=== PATIENT | female | born 1955 | race Caucasian/White ===

== ENCOUNTER 2022-10-14 10:11 | Outpatient (CLI) | payer MEDICARE, SELFPAY ==
[2022-10-14 10:26] LABS: Basophils % 0.6 %; Eosinophils # 0.1 10^3/uL (0.0-0.8); Eosinophils % 1.9 %; Hemoglobin 12.9 g/dL (11.5-15.3); Lymphocytes # 0.7 10^3/uL (0.8-4.8); Lymphocytes % 15.4 %; Mean Corpuscular HGB Conc 31.5 g/dL (30.0-36.0); Mean Corpuscular Hemoglobin 29.7 pg (28.0-34.0); Mean Corpuscular Volume 94.3 fl (81-99); Mean Platelet Volume 12.4 fL (7.4-10.4); Monocytes # 0.6 10^3/uL (0.2-0.9); Monocytes % 12.6 %; Neutrophils # 3.22 10^3/uL (1.8-7.7); Neutrophils % 69.1 %; Nucleated Red Blood Cells % 0 %; Platelet Count 127 10^3/cmm (130-400); Red Blood Count 4.35 10^6/uL (4.1-5.3); Red Cell Distribution Width 15.6 % (12.1-15.1); White Blood Count 4.7 10^3/uL (4.0-10.0)
== END 2022-10-14 10:12 | disposition home or self-care (01) ==
PROVIDERS: PCP Nurse Practitioner Family; Visit Provider Nurse Practitioner Family
DX: D50.9 Iron deficiency anemia, unspecified (principal)
CPT/HCPCS: 85025

== ENCOUNTER 2024-02-23 10:12 | Emergency (ER) | payer MEDICARE, MEDICAID, SELFPAY ==
[2024-02-23 10:30] VITALS: BP 151/83; PULSE 77; RESP 18; TEMP 36.8; O2SAT 98
--- NOTE | 2024-02-23 10:45 | CTR_ITS ---
PROCEDURE INFORMATION: Exam: CT Head Without Contrast Exam date and time: 02/23/2024 11:02 AM Age: 68 years old Clinical indication: Altered mental status/memory loss; Additional info: AMS TECHNIQUE: Imaging protocol: Computed tomography of the head without contrast. Radiation optimization: All CT scans at this facility use at least one of these dose optimization techniques: automated exposure control; mA and/or kV adjustment per patient size (includes targeted exams where dose is matched to clinical indication); or iterative reconstruction. COMPARISON: No relevant prior studies available. RADIATION DOSE METRICS: Total DLP (mGy-cm): 997 FINDINGS: Brain: There is no evidence of acute parenchymal hemorrhage, extra-axial collection, or acute infarction. There is no mass effect, midline shift, or downward herniation. Cerebral ventricles: No ventriculomegaly. Paranasal sinuses: Visualized sinuses are unremarkable. No fluid levels. Mastoid air cells: Visualized mastoid air cells are well aerated. Bones: Unremarkable. No acute fracture. Soft tissues: Unremarkable. CT/CT head wo con* [id number] IMPRESSION: No acute intracranial abnormality.
--- NOTE | 2024-02-23 10:45 | XR_ITS ---
WS: [id number] XR chest 1V portable [id number] REASON FOR EXAM: dyspnea/cough FINDINGS: Moderate tortuosity and ectasia of the thoracic aorta. The heart is at the upper limits of normal in size. Calcified granulomas disease bilaterally. No acute pulmonary parenchymal or pleural abnormality is identified. Moderate elevation of the left hemidiaphragm laterally. Dextroscoliosis and mild degenerative spondylosis of the thoracic spine. XR/XR chest 1V portable [id number] IMPRESSION: No acute chest abnormality identified.
--- NOTE | 2024-02-23 10:51 | ED_ITS ---
HPI - Weakness 2 General: Chief complaint: Weakness Stated complaint: right sided weakness Time Seen by Provider: 02/23/24 10:35 History of Present Illness: 68-year-old female presents emergency ro om with report of right-sided weakness she has a history of dementia. EMS states the complaint was weakness and monitor the right for last 2 days. She was sleeping on arrival here she denies any chest pain she denies any shortness of breath she does not know where she was recommended because she got here. She does follow commands. She mentions simple questions okay but is not oriented at all. Weakness we could find was in her left leg. She denies chest pain denies shortness of breath denies any abdominal pain. She denies dysuria. Associated symptoms: Denies chest pain or dysuria Review of Systems 2 General: Reports: Other (Limited due to mental status) Card: Denies: chest pain Resp: Denies: dyspnea GI: Denies: abdominal pain : Denies: dysuria Physical Exam 2 Const: COMMON NORMALS: no acute distress GENERAL APPEARANCE: cooperative and comfortable ORIENTATION/CONSCIOUSNESS: Yes awake HENMT: COMMON NORMALS: normocephalic, atraumatic and hearing grossly normal bilaterally HEAD & SCALP: normocephalic and atraumatic Resp: COMMON NORMALS: normal respiratory effort, No retractions, No use of accessory muscles and clear to auscultation bilaterally AUSCULTATION: clear to auscultation bilaterally Cardio: COMMON NORMALS: regular rate, regular rhythm and No murmurs present (Cardio) RATE: regular rate RHYTHM: regular rhythm GI: COMMON NORMALS: Soft to palpation and No hepatosplenomegaly present A USCULTATION: Yes normoactive bowel sounds PALPATION: Yes Soft to palpation, No Tenderness to palpation present (GI), No Guarding due to palpation present (GI) and Yes No hepatosplenomegaly present Extremity: COMMON NORMALS: normal to inspection, capillary refill normal, no clubbing, cyanosis or edema, no calf tenderness and no pedal edema Skin: COMMON NORMALS: no rashes or lesions noted GENERAL SKIN EXAM: no rashes or lesions noted Course 2 Vital Signs: Vital signs: Vital Signs Temperature 97.6 F 02/23/24 12:29 Pulse Rate 86 02/23/24 14:09 Respiratory Rate 16 02/23/24 14:09 Blood Pressure 179/91 02/23/24 14:09 Pulse Oximetry 95 02/23/24 14:09 Oxygen Delivery Me thod Room Air 02/23/24 13:00 MDM - Weakness Medical Decision Making Report of right-sided weakness. On her stroke score she is all of her points for 1 or actually related to her dementia. She has weakness but it is in her left leg not her right sensation and strength are normal in both legs. I do not believe she has an acute stroke CT of her head was negative she does have a cystitis. Will treat with antibiotics white count in her room kidney function are normal. Discharge patient back to nursing on cefdinir 300 twice daily. Lab Data 02/23/24 10:50 02/23/24 10:50 Radiology Impressions Chest X-Ray 02/23/24 10:45 IMPRESSION: No acute chest abnormality identified. Head CT 02/23/24 10:45 IMPRESSION: No acute intracranial abnormality. Laboratory Results WBC 4.27 10^3/uL (3.29-11.43) 02/23/24 10:50 RBC 4.27 10^6/uL (3.85-5.65) 02/23/24 10:50 Hgb 12.80 g/dL (11.27-16.99) 02/23/24 10:50 Hct 39.9 % (36-47) 02/23/24 10:50 MCV 93.4 fl (85-98) 02/23/24 10:50 MCH 30.0 pg (27-33) 02/23/24 10:50 MCHC 32.1 g/dL (30-55) 02/23/24 10:50 RDW 15.2 % (12.1-15.1) H 02/23/24 10:50 Plt Count 102 10^3/cmm (157-399) L 02/23/24 10:50 MPV 12.1 fL (7.4-10.4) H 02/23/24 10:50 Neut % (Auto) 73.2 % 02/23/24 10:50 Lymph % (Auto) 11.2 % 02/23/24 10:50 Garden % (Auto) 12.9 % 02/23/24 10:50 Eos % (Auto) 1.6 % 02/23/24 10:50 Baso % (Auto) 0.9 % 02/23/24 10:50 Neut # (Auto) 3.12 10^3/uL (1.8-7.7) 02/23/24 10:50 Lymph # (Auto) 0.5 10^3/uL (0.8-4.8) L 02/23/24 10:50 Garden # (Auto) 0.6 10^3/uL (0.2-0.9) 02/23/24 10:50 Eos # (Auto) 0.1 10^3/uL (0.0-0.8) 02/23/24 10:50 Baso # (Auto) 0.0 10^3/uL (0.0-0.1) 02/23/24 10:50 Nucleated RBC % (auto) 0 % 02/23/24 10:50 Nucleated RBCs # 0.0 /100WBC 02/23/24 10:50 Sodium 144 mmol/L (136-145) 02/23/24 10:50 Potassium 3.5 mmol/L (3.5-5.1) 02/23/24 10:50 Chloride 107 mmol/L (98-107) 02/23/24 10:50 Carbon Dioxide 28 mmol/L (22-29) 02/23/24 10:50 Anion Gap 12.5 (5-19) 02/23/24 10:50 BUN 14 mg/dL (8-23) 02/23/24 10:50 Creatinine 0.6 mg/dL (0.5-0.9) 02/23/24 10:50 GFR Calculation 99.1 mL/min (90-130) 02/23/24 10:50 Glucose 81 mg/dL (65-115) 02/23/24 10:50 Calculated Osmolality 298 mOsm/kg (285-295) H 02/23/24 10:50 Calcium 8.9 mg/dL (8.5-10.5) 02/23/24 10:50 Total Bilirubin 0.6 mg/dL (0.15-1.2) 02/23/24 10:50 AST 19 U/L (0-32) 02/23/24 10:50 ALT 19 U/L (0-33) 02/23/24 10:50 Alkaline Phosphatase 102 U/L (35-105) 02/23/24 10:50 Troponin T Baseline 22 ng/L (0-10) H 02/23/24 10:50 Troponin T 120 Minute 22.12 ng/L (0-10) H 02/23/24 12:48 Delta Troponin T 0.12 ABS# (0-10) 02/23/24 12:48 Total Protein 6.3 g/dL (6.6-8.7) L 02/23/24 10:50 Albumin 3.7 g/dL (3.5-5.2) 02/23/24 10:50 Globulin 2.6 g/dL (1.3-4.6) 02/23/24 10:50 Urine Color Yellow (Yellow) 02/23/24 12:04 Urine Appearance Clear (CLEAR) 02/23/24 12:04 Urine pH 7.5 (5-7) 02/23/24 12:04 Ur Specific [place] 1.008 (1.005-1.030) 02/23/24 12:04 Urine Protein Negative (Negative) 02/23/24 12:04 Urine Glucose (UA) Negative (Normal) 02/23/24 12:04 Urine Ketones Negative (Negative) 02/23/24 12:04 Urine Blood Negative (Negative) 02/23/24 12:04 Urine Nitrate Positive (Negative) A 02/23/24 12:04 Urine Bilirubin Negative (Negative) 02/23/24 12:04 Urine Urobilinogen 1.0 mg/dL (Negative) 02/23/24 12:04 Ur Leukocyte Esterase 1+ (Negative) A 02/23/24 12:04 Urine RBC 0-2 /hpf (0-2) 02/23/24 12:04 Urine WBC 6-10 /hpf (0-5) 02/23/24 12:04 Ur Squamous Epith Cells 0-5 /hpf (0-5) 02/23/24 12:04 Amorphous Sediment Not Reportable 02/23/24 12:04 Urine Bacteria 4+ /hpf (NONE) H 02/23/24 12:04 Hyaline Casts 0.81 /lpf 02/23/24 12:04 All radiology interpretation(s) finalized by discharge Discharge Plan Discharge Patient Disposition: Home Clinical Impression: Cystitis, Dementia Condition: Stable Prescriptions: New cefdinir 300 mg capsule 300 mg PO BID Qty: 14 0RF No Action acetaminophen 325 mg Tablet 650 mg PO Q4H PRN (Reason: pain or fever) alprazolam 0.5 mg tablet 0.5 mg PO Q8H PRN (Reason: Anxiety) Milk of Magnesia 400 mg/5 mL Suspension 2,400 mg PO DAILY PRN (Reason: Constipation) Dulcolax (bisacodyl) 10 mg Suppository 10 mg [place] DAILY PRN (Reason: Constipation) buspirone 10 mg tablet 10 mg PO TID Fleet Enema 19-7 gram/118 mL Enema 118 ml [place] DAILY PRN (Reason: Constipation) Lasix 20 mg Tablet 20 mg PO DAILY risperidone 1 mg tablet 1 mg PO DAILY lamotrigine 100 mg tablet 50 mg PO TID risperidone 0.5 mg tablet 1.5 mg PO QPM melatonin 1 mg Tablet 1 mg PO DAILY memantine 5 mg tablet 5 mg PO BID duloxetine 60 mg capsule,delayed release(DR/EC) 60 mg PO DAILY eszopiclone 3 mg tablet 3 mg PO BEDTIME potassium chloride 20 mEq Tablet Extended Release 20 meq PO DAILY Discharge Orders: Discharge ED (Routine); Ordered 02/23/24 Ordered By: Eugenio Coronel Referrals: Fredo Jiang FNP [Primary Care Provider] - Discharge Diet: Advance as tolerated Discharge Activity: Resume usual activity Patient Instructions: Urinary Tract Infection in Women (ED), Opioid Safety, Pain Management Coding Level of Care Code ED 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 Engineering 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 for [facility] Fwd Related Data Home Medications Medication Instructions Recorded Confirmed acetaminophen 325 mg tablet 650 mg PO Q4H PRN pain or fever 02/23/24 02/23/24 alprazolam 0.5 mg tablet 0.5 mg PO Q8H PRN Anxiety 02/23/24 02/23/24 bisacodyl 10 mg rectal suppository 10 mg [place] DAILY PRN Constipation 02/23/24 02/23/24 (Dulcolax (bisacodyl)) buspirone 10 mg tablet 10 mg PO TID 02/23/24 02/23/24 duloxetine 60 mg capsule,delayed 60 mg PO DAILY 02/23/24 02/23/24 release eszopiclone 3 mg tablet 3 mg PO BEDTIME 02/23/24 02/23/24 furosemide 20 mg tablet (Lasix) 20 mg PO DAILY 02/23/24 02/23/24 lamotrigine 100 mg tablet 50 mg PO TID 02/23/24 02/23/24 magnesium hydroxide 400 mg/5 mL 2,400 mg PO DAILY PRN Constipation 02/23/24 02/23/24 oral suspension (Milk of Magnesia) melatonin 1 mg tablet 1 mg PO DAILY 02/23/24 02/23/24 memantine 5 mg tablet 5 mg PO BID 02/23/24 02/23/24 potassium chloride 20 mEq 20 meq PO DAILY 02/23/24 02/23/24 tablet,extended release risperidone 0.5 mg tablet 1.5 mg PO QPM 02/23/24 02/23/24 risperidone 1 mg tablet 1 mg PO DAILY 02/23/24 02/23/24 sodium phosphates 19 gram-7 118 ml [place] DAILY PRN Constipation 02/23/24 02/23/24 gram/118 mL enema (Fleet Enema) Previous Rx's Medication Instructions Recorded cefdinir 300 mg capsule 300 mg PO BID #14 caps 02/23/24 Allergies Allergy/AdvReac Type Severity Reaction Status Date / Time No Known Allergies Allergy Verified 02/23/24 10:34 NIH stroke score NIHSS Level Of Consciousness - 1a: 0 Level Of Consciousness Questions - 1b: Neither Correct Level Of Consciousness Commands - 1c: Both Correct Best Gaze - 2: Normal Visual Reich - 3: No Visual Loss Facial Palsy - 4: Normal Motor Arm Right - 5: No Drift Motor Arm Left - 5: No Drift Motor Leg Right - 6: No Drift Motor Leg Left - 6: Drift Limb Ataxia - 7: Absent Sensory - 8: Normal Best Language - 9: No Aphasia Dysarthia - 10: Normal Extinction And Inattention - 11: 0 Score Total Score: 3
[2024-02-23 10:58] LABS: Basophils % 0.9 %; Eosinophils # 0.1 10^3/uL (0.0-0.8); Eosinophils % 1.6 %; Hematocrit 39.9 % (36-47); Lymphocytes # 0.5 10^3/uL (0.8-4.8); Lymphocytes % 11.2 %; Mean Corpuscular HGB Conc 32.1 g/dL (30-55); Mean Corpuscular Volume 93.4 fl (85-98); Mean Platelet Volume 12.1 fL (7.4-10.4); Monocytes # 0.6 10^3/uL (0.2-0.9); Monocytes % 12.9 %; Neutrophils # 3.12 10^3/uL (1.8-7.7); Neutrophils % 73.2 %; Nucleated Red Blood Cells % 0 %; Platelet Count 102 10^3/cmm (157-399); Red Blood Count 4.27 10^6/uL (3.85-5.65); Red Cell Distribution Width 15.2 % (12.1-15.1); White Blood Count 4.27 10^3/uL (3.29-11.43)
[2024-02-23 11:16] LABS: Alanine Aminotransferase 19 U/L (0-33); Albumin Level 3.7 g/dL (3.5-5.2); Alkaline Phosphatase 102 U/L (35-105); Anion Gap 12.5 (5-19); Aspartate Amino Transferase 19 U/L (0-32); Blood Urea Nitrogen 14 mg/dL (8-23); Calcium 8.9 mg/dL (8.5-10.5); Carbon Dioxide 28 mmol/L (22-29); Chloride 107 mmol/L (98-107); Globulin 2.6 g/dL (1.3-4.6); Glomerular Filtration Rate 99.1 mL/min (90-130); Glucose 81 mg/dL (65-115); Osmolality Calculated 298 mOsm/kg (285-295); Potassium 3.5 mmol/L (3.5-5.1); Sodium 144 mmol/L (136-145); Total Bilirubin 0.6 mg/dL (0.15-1.2); Total Protein 6.3 g/dL (6.6-8.7)
[2024-02-23 11:18] LABS: Troponin(5th) Baseline 22 ng/L (0-10)
--- NOTE | 2024-02-23 11:50 | ECG_ITS ---
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 Measurements Intervals [place] Rate: 81 P: 64 VA: 198 QRS: 14 QRSD: 98 T: 58 QT: 390 QTc: 455 Interpretive Statements SINUS RHYTHM No previous ECG available for comparison Electronically Signed On 02-24-2024 7:44:13 CDT by Alberto Ferreira M.D. [id number]
[2024-02-23 12:29] VITALS: BP 179/88; PULSE 82; RESP 16; TEMP 36.4; O2SAT 98
--- NOTE | 2024-02-23 12:44 | PC.PHAR ---
[facility]
--- NOTE | 2024-02-23 12:45 | ECG_ITS ---
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 Measurements Intervals [place] Rate: 80 P: 48 DE: 180 QRS: 8 QRSD: 112 T: 81 QT: 383 QTc: 443 Interpretive Statements SINUS RHYTHM POSSIBLE LATERAL MYOCARDIAL INFARCTION , OF INDETERMINATE AGE [30 ms Q WAVE IN I/aVL/V5/V6] Compared to ECG 02/23/2024 11:50:13 Myocardial infarct finding now present Electronically Signed On 02-24-2024 7:51:31 CDT by Alberto Ferreira M.D. [id number]
[2024-02-23 13:00] VITALS: BP 169/93; PULSE 81; RESP 16; O2SAT 98
[2024-02-23 13:00] LABS: Charge for UA Resulting for Rev
[2024-02-23 13:05] LABS: Bilirubin Urine Negative (Negative); Blood Urine Negative (Negative); Glucose Urine UA Negative (Normal); Ketones Urine Negative (Negative); Leukocyte Esterase Urine 1+ (Negative); Nitrate Urine Positive (Negative); Protein Urine Negative (Negative); Specific Gravity, Urine 1.008 (1.005-1.030); Urine Appearance Clear (CLEAR); Urine Color Yellow (Yellow); pH Urine 7.5 (5-7)
[2024-02-23 13:08] LABS: Bacteria Urine 4+ /hpf; Hyaline Casts Urine 0.81 /lpf; RBC Urine 0-2 /hpf (0-2); Squamous Epithelial Cell Urine 0-5 /hpf (0-5)
[2024-02-23 13:12] LABS: Add Urine Culture? Yes
[2024-02-23 13:14] LABS: Troponin 5 2HR 22.12 ng/L (0-10); Troponin 5 2HR Delta 0.12 ABS# (0-10)
[2024-02-23] MEDS: cefTRIAXone 1,000 mg SDV 1000 MG IVP (13:50)
--- NOTE | 2024-02-23 14:08 | PC.NURSE ---
Attempted to call report to [place] twice. Left a voicemail to return call for the nurse to give report.
[2024-02-23 14:09] VITALS: BP 179/91; PULSE 86; RESP 16; O2SAT 95
== END 2024-02-23 13:56 | disposition home or self-care (01) ==
PROVIDERS: Emergency Provider Family Medicine; PCP Nurse Practitioner Family
DX: N30.90 Cystitis, unspecified without hematuria (principal); F03.90 Unspecified dementia, unspecified severity, without behavioral disturbance, psychotic disturbance, mood disturbance, and anxiety
CPT/HCPCS: 36415; 70450; 71045; 80053; 81003; 81015; 84484; 85025; 87077; 87086; 87186; 93005; 96374; 99285; J0696

== ENCOUNTER 2024-12-25 01:03 | Emergency (ER) | payer MEDICARE, MEDICAID, SELFPAY ==
--- OUTSIDE RECORDS SUMMARY | 2011-09-17 06:00 | XMS_ITS | Continuity of Care Document ---
Author Organization [facility] Address [address] [id number] [address] Phone Care Team Providers Care Senior Data Mining Analyst Name Role Phone Unavailable Unavailable Unavailable Allergies, [...] Diagnoses Date Provider Providers Copied on Encounter [facility], [id number], [id number], tel:[phone] [facility] Dental examination 2 No Information [facility], [id number], [place], [id number], [place] tel:[phone] [facility] Dental examination 2 No Information Family History Family Member Type Diagnosis Age At Onset No Information Payers Payer name Insurance type Covered constitution party ID luca gem(s) D Medicaid [id number] Social History Type Description Quantity Date Captured [...]
[2024-12-25 01:11] VITALS: BP 139/70; PULSE 97; RESP 18; TEMP 36.6; O2SAT 97; BMI 29.0
--- OUTSIDE RECORDS SUMMARY | 2024-12-25 01:12 | XMS_ITS | Clinical Summary ---
Author Organization [facility] Address [address] [place] [address] Phone Care Team Providers Care Rotary Planer Set Up Operator Name Role Phone Unavailable Primary Care Provider Unavailabl e Allergies Active Allergy Reactions Criticality Noted Date Comments Latex Itching Low 03/31/2015 Penicillins Other (See Comments) High 08/22/2009 Throat closed up Medications furosemide (LASIX) 20 mg tabletIndication s:Lymphedema of both lower extremities Take 1-2 Tablets (20-40 mg) by mouth 1 time daily as needed (for fluid swelling in feet and legs). 50 Tablet 1 2 Active potassium chloride (KLOR-CON) 20 mEq Extended Release tabletIndication s:Lymphedema of both lower extremities 1 tablet by mouth on any day you take the fluid pill. 30 Tablet 1 2 Active FLUoxetine (PROzac) 20 mg capsuleIndicatio ns:Major depressive disorder, recurrent episode, in partial remission Take 1 Capsule (20 mg) by mouth daily. 90 Capsule 2 Active donepeziL (Aricept) 10 mg tabletIndication s:Early onset Alzheimer's dementia without behavioral disturbance (CMS/HCC) Take 1 Tablet (10 mg) by mouth daily at bedtime. 90 Tablet 2 Active Active Problems Problem Noted Date Diagnosed Date Lymphedema of both lower extremities 03/11/2022 Abnormal weight loss 10/18/2021 Thrombocytopenia 10/18/2021 Early onset Alzheimer's gaby ntia without behavioral disturbance 07/21/2021 Major depressive disorder, r ecurrent episode, in partial remission 03/08/2021 Memory changes 03/08/2021 History of gastrointestinal bleeding 01/12/2016 Cholelithiasis 11/29/2011 Hepatic cirrhosis 08/22/2009 Hx of hepatitis C 04/09/2008 Overview (10/12/2020): Mar 2016 SVR achieved. Cirrhosis of liver on ultrasound Resolved Problems Problem Noted Date Diagnosed Date Resolved Date Secondary esophageal varices without bleeding 01/12/20 16 03/08/2021 Tobacco use 06/30/2015 11/14/2016 Tobacco use 06/30/2015 11/14/2016 Periodontal disease 06/06/2011 03/08/20 21 Esophageal varix 09/20/2010 03/08/2021 Depression 09/20/2010 03/08/2021 Hepatic encephalopathy 12/22/200903/08 Ascites 08/22/2009 03/08/2021 Immunizations Immunization Administration Dates Next Due (HAVRIX/VAQTA)(19 YRS UP) HE PATITIS A VACCINE ADULT DOSAGE 1 ML IMM 01/09/2012 (PNEUMOVAX 23)(50 YRS UP) PN EUMOCOCCAL POLYSACCHARIDE (PPV23) 0.5 ML, IM 12/26/2011 (SPIKEVAX) (12 YRS UP PRIMAR Y SERIES) COVID-19 VACCINE - MRNA-[id number](PF) 100 MCG/0.5 ML IM SUSP 04/20/2021 Influenza Seasonal Unspecifi ed Formulation IM 04/16/2021,04/28/2018,07/01/2017,07/19 Influenza Vaccine High Dose 65+ Yrs IM 0 Influenza Vaccine Split 3+ Yrs PF IM 03/18/2013, 03/27/2011 PNEUMOVAX (PPSV23) pneumococ mary polysaccharide 23-valent Vaccine 07/19/2016 Family History Medical History Relation Name Comments Unknown Father Alzheimer's Disease Maternal Grandmother Alzheimer's Disease Mother Breast Cancer Sister Colon Cancer Neg Hx Relation Name Status Comments Father Maternal Grandfather Maternal Grandmother Mother Paternal Grandfather Paternal Grandmother Sister Social History Tobacco Use Types Packs/Day Years Used Date Smoking Tobacco: Former Cigarettes Q uit: 02/14/2021 Smokeless Tobacco: Never Tobacco Cessation:Counseling Given: No Alcohol Use Standard Drinks/Week Comments No 0 (1 standard drink = 0.6 oz pur e alcohol) Comments No Sex and Gender Information Value Date Recorded Sex Assigned at Not on file Legal Sex Female 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 Gender Identity Not on file Sexual Orientation Not on file Last Filed Vital Signs Vital Sign Reading Time Taken Comments Blood Pressure 112/64 03/11/2022 8:22 AM CDT Pulse 72 03/11/2022 8:22 AM CDT Temperature 36.3 C (97.3 F) 03/11/2022 8:22 AM CDT Respiratory Rate 16 03/11/2022 8:22 AM CDT Oxygen Saturation 99% 03/11/2022 8:22 AM CDT Inhaled Oxygen Concentration - - Weight 60.6 kg (133 lb 9.6 oz) 03/11/2022 8:22 A M CDT Height 175.3 cm (5' 9 ) 03/11/2022 8:22 AM CDT Body Mass Index 19.73 03/11/2022 8:22 AM CDT Plan of Treatment Health Maintenance Due Date Last Done Comments DTAP/TDAP/TD VACCINES (1 - Tdap) 1973 FIT-DNA Q 3 years 1999 FIT/FOBT Q 1 year 1999 Flex Sig/CT Colonography Q 5 years 1999 ZOSTER VACCINE (1 of 2) 2004 RSV VACCINE (60+ or ) (1 - Risk 60-74 years 1-dose series) 2014 PNEUMOCOCCAL VACCINE 50+ YEA RS (2 of 2 - PCV) 07/19/2017 07/19/2016, 12/26/2011 COLORECTAL SCREENING 10/29/2017 10/29/2012, 10/29/2012, 10/29/2012 Colorectal Cancer Screening 10/29/2017 OSTEOPOROSIS SCREENING 2019 BREAST CANCER SCREENING 01/09/2020 01/08/2019, 01/08 COVID-19 Vaccine (2 - 2023-2 5 season) 2024 04/20/2021 INFLUENZA VACCINE (#1) 2025 , 03/17/2020, 04/28/2018, Additional history exists Medical Devices Implanted Type Area Slp Device Identifier Shelf Expiration Date Model / Serial / Lot Log [id number] - Endoscopy Ligation - 1 - Ligator Band Super 7 [id number] Implanted:Qty: 1 on 09/24/2011 Other Esophagus [employer] 07/26/2012 4225-40 / / [id number] Description:6 bands placed. pt chapis well Log [id number] - Endoscopy Ligation - 1 - Ligator Band Super 7 [id number] Implanted:Qty: 1 on 10/15/2011 Other Esophagus [employer] 07/17/2012 4225-40 / [id number] / [id number] Description:2 bands used Procedures Procedure Name Priority Date/Time Associated Diagnosis Comments MAMMO 3D EMILIANO SCREEN BILATERAL MOBILE Routine 01/08/2019 11:01 AM CDT Encounter for screening mammogram for malignant neoplasm of breast from Last 3 Months or Most Recently Relevant to Health Maintenance Results * MAMMO 3D SCREEN BILATERAL MOBILE (01/08/2019 11:01 AM CDT) Anatomical Region Laterality Modality Breast Bilateral Other Narrative 01/22/2019 1:47 PM CDT Bilateral Digital Mammogram with CAD and 3D Tomography Reason for Exam: Screening Comparison: No prior exam(s) for comparison. Technique: 3D MLO and CC digital tomosynthesis images were acquired and synthesized 2D images (C view) were generated. This digital mammogram was also analyzed by the Computer Aided Detection System CAD). Breast Composition: The breasts are heterogeneously dense, which may obscure small masses. There are no suspicious masses, areas of architectural distortions, or microcalcifications to suggest malignancy. Procedure Note Bryan Vargas MD - 11/15/2020 Bilateral Digital Mammogram with CAD and 3D Tomography Reason for Exam: Screening Comparison: No prior exam(s) for comparison. Technique: 3D MLO and CC digital tomosynthesis images were acquired and synthesized 2D images (C view) were generated. This digital mammogram was also analyzed by the Computer Aided Detection System CAD). Breast Composition: The breasts are heterogeneously dense, which may obscure small masses. There are no suspicious masses, areas of architectural distortions, or microcalcifications to suggest malignancy. Naina Navarrete YARD ENGINEER MAMMO ORDERABLES Final Result from Last 3 Months or Most Recently Relevant to Health Maintenance Insurance MEDICAID [place] [address] [place] [address] DUAL COMPLETE O [facility] [id number]
--- OUTSIDE RECORDS SUMMARY | 2024-12-25 01:13 | XMS_ITS | Clinical Summary ---
Author Organization [facility] or Address [address] [place] [address] Phone Care Team Providers Care Acid Bath Mixer Name Role Phone Enrico Mendoza MD Primary Care Provider [phone] Allergies Active Allergy Reactions Criticality Noted Date Comments Latex Itching Low 03/31/2015 Penicillins Other (See Comments) High 08/22/2009 Throat closed up Medications No known medications Active Problems Problem Noted Date Diagnosed Date History of gastrointestinal bleeding 01/12/2016 Secondary esophageal varices without bleeding Cholelithiasis 11/29/2011 Periodontal disease 06/06/2011 Esophageal varix 09/20/2010 Depression 09/20/2010 Hepatic encephalopathy 12/22/2009 Ascites 08/22/2009 Hepatic cirrhosis 08/22/2009 Hx of hepatitis C 04/09/2008 Overview (04/17/2016): Mar 2016 SVR achieved. Cirrhosis of liver on ultrasound Resolved Problems Problem Noted Date Diagnosed Date Resolved Date Tobacco use 06/30/2015 11/14/2016 Tobacco use 06/30/2015 11/14/2016 Immunizations Immunization Administration Dates Next Due (HAVRIX/VAQTA)(19 YRS UP) HE PATITIS A VACCINE ADULT DOSAGE 1 ML IMM 01/09/2012 (PNEUMOVAX 23)(50 YRS UP) PN EUMOCOCCAL POLYSACCHARIDE (PPV23) 0.5 ML, IM 12/26/2011 Influenza Seasonal Unspecifi ed Formulation IM 04/28/2018,07/01/2017,07/19/2016 Influenza Vaccine High Dose 65+ Yrs IM 0 Influenza Vaccine Split 3+ Yrs PF IM 03/18/2013, 03/27/2011 PNEUMOVAX (PPSV23) pneumococ mary polysaccharide 23-valent Vaccine 07/19/2016 Family History Medical History Relation Name Comments Breast Cancer Sister Colon Cancer Neg Hx Relation Name Status Comments Father Maternal Grandfather Maternal Grandmother Mother Paternal Grandfather Paternal Grandmother Sister Social History Tobacco Use Types Packs/Day Years Used Date Smoking Tobacco: Former Cigarettes Q uit: 07/17/2015 Smokeless Tobacco: Never Tobacco Cessation:Counseling Given: No Alcohol Use Standard Drinks/Week Comments No 0 (1 standard drink = 0.6 oz pur e alcohol) Comments No Sex and Gender Information Value Date Recorded Sex Assigned at Not on file 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 Gender Identity Not on file Sexual Orientation Not on file Occupation Industry Job Start Date Job End Date Not on file Not on file Not on file Not on file Last Filed Vital Signs Vital Sign Reading Time Taken Comments Blood Pressure 146/82 10/04/2020 1:29 PM CDT Pulse 80 10/04/2020 1:29 PM CDT Temperature 36.3 C (97.3 F) 10/04/2020 1:29 PM CDT Respiratory Rate 16 10/04/2020 1:29 PM CDT Oxygen Saturation 99% 10/04/2020 1:29 PM CDT Room Air Inhaled Oxygen Concentration - - Weight 68.7 kg (151 lb 6.4 oz) 10/04/2020 1:29 P M CDT Height 175.3 cm (5' 9 ) 10/04/2020 1:29 PM CDT Body Mass Index 22.36 10/04/2020 1:29 PM CDT Plan of Treatment Health Maintenance Due [...] 07/19/2017 07/19/2016, 12/26/2011 COLORECTAL SCREENING 10/29/2017 10/29/2012, 10/30/19 13 Colorectal Cancer Screening 10/29/2017 OSTEOPOROSIS SCREENING 2019 BREAST CANCER SCREENING 01/09/2020 01/08/2019 Medicare Ad[place]age ([place]) Preventative Visit/Annual Wellness Visit 06/16/2024 INFLUENZA VACCINE (#1) 2025 0, 04/28/2018, 07/01/2017, Additional history exists Medical Devices Implanted Type Area Lead Advisor Device Identifier Shelf Expiration Date Model / Serial / Lot Log [id number] - Endoscopy Ligation - 1 - Ligator Band Super 7 [id number] Implanted:Qty: 1 on 09/24/2011 at [facility] Other Esophagus [employer] 07/26/2012 4225-40 / / [id number] Description:6 bands placed. pt chapis well Log [id number] - Endoscopy Ligation - 1 - Ligator Band Super 7 [id number] Implanted:Qty: 1 on 10/15/2011 at [facility] Other Esophagus [employer] 07/17/2012 4225-40 / 4225 / [id number] Description:2 bands used Procedures Procedure Name Priority Date/Time Associated Diagnosis Comments MAMMO 3D EMILIANO SCREEN BILATERAL MOBILE Routine 01/08/2019 11:01 AM CDT Visit for screening mammogram ENDOSCOPY, COLON, DIAGNOSTIC Routine 10/29/2012 3:26 PM CDT Change in bowel habits from Last 3 Months or Most Recently Relevant to Health Maintenance Results * MAMMO 3D SCREEN BILATERAL MOBILE (01/08/2019 11:01 AM CDT) Anatomical Region Laterality Modality Breast Bilateral Mammography Narrative 01/22/2019 1:49 PM CDT Bilateral Digital Mammogram with CAD [...] or microcalcifications to suggest malignancy. Naina Navarrete COMMODITY BUYER MAMMO ORDERABLES Final Result from Last 3 Months or Most Recently Relevant to Health Maintenance Insurance MEDICAID [place] DUAL COMPLETE M[employer] HMO SNP Advance Directives For more information, please contact: [phone] * Full Code (Latest Code Status on File) Date Activated Date Inactivated Comments 03/31/2015 11:25 AM 03/31/2015 2:38 PM * Full Code Date Activated Date Inactivated Comments 04/12/2013 10:47 AM 04/12/2013 2:14 PM * Full Code Date Activated Date Inactivated Comments 10/29/2012 3:27 PM 10/29/2012 7:44 PM * Full Code Date Activated Date Inactivated Comments 03/18/2012 8:09 AM 03/19/2012 2:01 AM * Full Code Date Activated Date Inactivated Comments 10/15/2011 8:29 AM 10/16/2011 2:01 AM Care Teams Acid Bath Mixer Relationship Specialty Start Date End Date Enrico Mendoza MD [address] [place] [address] PCP - General Family Practice 06/30/15
--- OUTSIDE RECORDS SUMMARY | 2024-12-25 01:13 | XMS_ITS | Data Portability ---
Author Organization [facility] Kenneth, Jaime, [facility] Address [address] [place] [phone] Assessment No assessment recorded. Plan of Treatment Reminders Order Date Submit Date Provider Last Modified By Organization Details Last Modified Time Details Appointments None record ed. Lab None record ed. Referral None record ed. Procedures None record ed. Surgeries None record ed. Imaging None record ed. Medication Orders None record ed. Patient TargetsNo targets recorded. Patient Instructions Encounter Date Encounter Id Patient Instructions Last Modified By Organization Details Last Modified Time 10/04/2024 [id number] d/c prn lasix an d potassium. Decrease risperdal to 1 tab. doing well, vitals stable. [email or web address] Not available 10/04/2024 15:03:04 10/25/2024 [id number] doing well. Will wean risperdal to 0.5 Not available 10/25/2024 15:43:39 11/17/2024 [id number] did well with decrease in risperdal, will d/c. [email or web address] Not available 11/17/2024 16:40:39 12/20/2024 [id number] Did well with stopping all antipsychotics. Will decrease buspar to 5mg bid. [email or web address] Not available 12/20/2024 16:39:05 12/22/2024 [id number] Blood pressure o n the low side, but likely will not tolerate compression wraps. Staff to try compression wraps and will start hctz 12.5 daily. [email or web address] Not available 12/22/2024 14:39:45 Reason for Referral None Reported. Problems Name Problem SNOMED Code Status Onset Date Resolution Date Notes Provider Name and Address Organization Details Recorded Time Anxiety 92317264 Active 2024 AMELIA moya [facility] 5 17:23:13 Restlessness and agitation 419669536 [facility] 15:26:43 Obsessive-com pulsive disorder 870710861 Active 2024 AMELIA BOLIVAR [facility] 5 15:26:51 Iron deficiency anemia 76898914 Active 2024 AMELIA BOLIVAR [facility] 5 15:26:58 Mixed anxiety and depressive disorder 168169059 Active 2024 AMELIA BOLIVAR [facility] 5 15:27:06 Insomnia 457147818 Active 2024 AMELIA BOLIVAR [facility] 5 15:27:20 Alzheimer's disease 94124349 Active 2024 AMELIA BOLIVAR [facility] 5 16:20:30 Bilateral lower limb edema 428077724 Active 2024 AMELIA BOLIVAR [facility] 5 14:38:42 Problem Notes None recorded. Medical Equipment None Reported. Medications Name Sig Start Date Stop Date Status Note LastModified by Organization Details LastModified Time donepezil 10 mg tablet active Not Available Not Available Not Available ciprofloxacin 250 mg tablet active Not Available Not Availabl e Not Available alprazolam 0.5 mg tablet Take 1 tablet 3 times a day by oral route for 30 days. active Not Available Not Available No t Available buspirone 10 mg tablet active Not Available Not Available Not Available haloperidol lactate 5 mg/mL injection solution active Not Available Not Available Not Available furosemide 20 mg tablet active Not Available Not Available No t Available cefdinir 300 mg capsule active Not Available Not Available Not Available risperidone 1 mg tablet active Not Available Not Available No t Available lamotrigine 100 mg tablet active Not Available Not Available No t Available risperidone 0.5 mg tablet active Not Available Not Available No t Available memantine 5 mg tablet active Not Available Not Available Not Available nitrofurantoin monohydrate/mac rocrystals 100 mg capsule active Not Available Not Available N ot Available duloxetine 30 mg capsule,delayed release active Not Available Not Available Not Available duloxetine 60 mg capsule,delayed release active Not Available Not Available Not Available eszopiclone 3 mg tablet Take 1 tablet every day by oral route at bedtime for 30 days. active Not Available Not Available No t Available Vitals Date Recorded Body weight Heart rate Respiratory rate Body temperature Oxygen saturation Oxygen saturation in Arterial blood by Pulse oximetry Systolic And Diastolic Provider Name and Address Organization Details Last Updated DateTime 5 64477.1 g 77 /min 18 /min 97.4 [degF] 98 % 98 % 120/76 mm[Hg] [facility] 5 15:01:13 Date Recorded Body weight Heart rate Respiratory rate Body temperature Oxygen saturation Oxygen saturation in Arterial blood by Pulse oximetry Systolic And Diastolic Provider Name and Address Organization Details Last Updated DateTime 5 58219.9 2 g 72 /min 18 /min 97.6 [degF] 95 % 95 % 124/72 mm[Hg] [facility] 5 15:41:33 Date Recorded Body weight Heart rate Respiratory rate Body temperature Oxygen saturation Oxygen saturation in Arterial blood by Pulse oximetry Systolic And Diastolic Provider Name and Address Organization Details Last Updated DateTime 5 49751.8 8 g 68 /min 20 /min 97.6 [degF] 96 % 96 % 128/74 mm[Hg] [facility] 5 16:38:42 Date Recorded Body weight Heart rate Respiratory rate Body temperature Oxygen saturation Oxygen saturation in Arterial blood by Pulse oximetry Systolic And Diastolic Provider Name and Address Organization Details Last Updated DateTime 5 67931.2 9 g 84 /min 18 /min 97.4 [degF] 96 % 96 % 124/80 mm[Hg] AMELIA BOLIVAR [facility] L[facility]in[facility]al 5 16:36:49 Date Recorded Body weight Heart rate Respiratory rate Body temperature Oxygen saturation Oxygen saturation in Arterial blood by Pulse oximetry Systolic And Diastolic Provider Name and Address Organization Details Last Updated DateTime 5 20188.2 9 g 84 /min 18 /min 97.6 [degF] 96 % 96 % 124/80 mm[Hg] AMELIA BOLIVAR [facility], Jaime 5 14:25:51 Social History None recorded. Functional Status None recorded. Mental Status None recorded. Family History Nothing Reported. Medical History No medical history recorded. Gynecological HistoryNo gynecological history recorded. Obstetrics History GPAL:G 0 P 0 0 0 0 Immunizations Vaccine Type Date Status Note Provider Nam e and Address Organization Details Recorded Time Influenza, split virus, trivalent, PF 1 completed Not Available [facility] 12/22/2024 13:01:29 Influenza, split virus, trivalent, PF 3 completed Not Available [facility] 12/22/2024 13:01:29 Influenza, MDCK, quadrivalent, PF 7 completed Not Available [facility] 12/22/2024 13:01:29 pneumococcal polysaccharide PPV23 7 completed Not Available [facility] 12/22/2024 13:01:29 Influenza, split virus, quadrivalent, PF 8 completed Not Available [facility] 12/22/2024 13:01:29 Influenza, split virus, quadrivalent, PF 8 completed Not Available [facility] 12/22/2024 13:01:29 COVID-19, mRNA, LNP-S, PF, 100 mcg/0.5mL dose or 50 mcg/0.25mL dose 1 completed Not Available [facility] 12/22/2024 13:01:29 COVID-19, mRNA, LNP-S, bivalent, PF, 50 mcg/0.5 mL or 25mcg/0.25 mL dose 3 completed Not Available [facility] 12/22/2024 13:01:29 Past Encounters Encounter ID Performer Location Encounter Start Date Encounter Closed Date Diagnosis/Indication Diagnosis SNOMED-CT Code Diagnosis ICD10 Code Diagnosis Note [id number] Nicola Jordan DO [facility] ([facility]) [address] [place], [place] [phone] 07/07/2024 08:27:31 07/12/2024 15:01:28 Anxiety 84163108 F41.9 Alzheimer's disease 2692 9004 G30.0 Restlessne ss and agitation 018288091 R45.1 Obsessive- compulsive disorder 157597445 F42.9 Iron defic iency anemia 52148396 D50.9 Mixed anxi ety and depressive disorder 287846159 F41.8 Insomnia 654941667 G47.0 0 [id number] Nicola Jordan DO [facility]) [address] [place], [place] [address] 07/28/2024 08:27:43 07/29/2024 17:21:18 [id number] Nicola Jordan DO [facility]) [address] [place], [place] [address] 08/02/2024 07:47:05 08/10/2024 07:59:31 Obsessive-compulsive disorder 500746489 F42.9 Insomnia 708336000 G47.0 0 Mixed anxi ety and depressive disorder 524317833 F41.8 [id number] Nicola Jordan DO [facility]) [address] [place] [address] 09/01/2024 08:27:16 09/06/2024 11:20:22 Obsessive-compulsive disorder 709850584 F42.9 Mixed anxi ety and depressive disorder 039729812 F41.8 Restlessne ss and agitation 859948672 R45.1 Alzheimer's disease 2692 9004 G30.0 [id number] Nicola Jordan DO [facility]) [address] [place], [place] [address] 10/04/2024 10:30:13 10/06/2024 17:11:32 Alzheimer's disease 14532428 G30.0 Mixed anxi ety and depressive disorder 743404754 F41.8 Insomnia 861573469 G47.0 0 [id number] Nicola Jordan DO [facility] ([facility]) [address] [phone] 10/25/2024 11:28:32 10/30/2024 07:59:19 Mixed anxiety and depressive disorder 979234023 F41.8 Alzheimer's disease 2692 9004 G30.0 Obsessive- compulsive disorder 104470276 F42.9 [id number] Nicola JordanDO [facility] ([facility]) [address] [address] 11/17/2024 09:41:06 11/22/2024 13:23:15 Mixed anxiety and depressive disorder 438836873 F41.8 Alzheimer's disease 2692 9004 G30.0 [id number] Nicola JordanDO [facility] ([facility]) [address] [address] 12/20/2024 08:36:10 12/21/2024 10:50:05 Obsessive-compulsive disorder 021151873 F42.9 Mixed anxi ety and depressive disorder 239356552 F41.8 Alzheimer's disease 2692 9004 G30.0 Insomnia 338720133 G47.0 0 [id number] Nicola Jordan [facility] ([facility]) [address] [place] [address] 5 12/22/2024 13:01:18 12/22/2024 16:07:52 Bilateral lower limb edema 890802039 R60.0 Health Concerns Section Related Observation LastModified by Organization Detai ls LastModified Time None Recorded Concern Status LastModified by Organization Details LastModified Time None Recorded Advance Directives Directive None Recorded Payers Insurance Date Sequence Insurance Name Policy Number Policy Coreas Covered Member ID Coreas Member ID Guarantor Name 12/17/2024 [place] - [facility] (MEDICARE) Henrietta Ashley [id number] Henrietta Ashley 12/17/2024 [place] [facility] Henrietta Ashley [id number] Henrietta Ashley 12/17/2024 1 MEDICARE B[place]: [facility] Henrietta Ashley [id number] Henrietta Ashley 07/01/2024 1 [facility] Henrietta Ashley [id number] Henrietta Ashley 12/17/2024 2 [place] Henrietta Ashley [id number] Henrietta Ashley Notes Date Note Type Note Provider Name and Address Organization Details Recorded Time 10/04/2024 text/html Generalized Anxi ety DisorderReported bypatient.Onset/Timing :years Severity:moderate Alleviating Factors:other medications Associated Symptoms:excess anxiety Nicola Jordan DO [address] [place], [place] [address], [facility]. 10/04/2024 15:15:39 10/25/2024 text/html Generalized Anxi ety DisorderReported bypatient.Onset/Timing :years Severity:moderate Alleviating Factors:other medications Associated Symptoms:excess anxiety no issues reported by staff. Nicola Jordan [address] [place], [place] [address], [facility], LTrinhLTrinhC. 10/29/2024 15:45:38 11/17/2024 text/html Generalized Anxi ety DisorderReported bypatient.Onset/Timing :years Severity:moderate Alleviating Factors:other medications Associated Symptoms:excess anxiety no issues reported by staff. Nicola Jordan DO [address] [place] [address], [phone], [facility] LTrinhL.[facility]. 11/21/2024 14:49:07 12/20/2024 text/html Generalized Anxi ety DisorderReported bypatient.Onset/Timing :years Severity:moderate Alleviating Factors:other medications Associated Symptoms:excess anxiety no issues reported by staff. Nicola Jordan DO [address] [place] [address], [phone], [facility] L.LTrinhC. 12/20/2024 16:48:59 12/22/2024 text/html Generalized Anxi ety DisorderReported bypatient.Onset/Timing :years Severity:moderate Alleviating Factors:other medications Associated Symptoms:excess anxiety staff reports increased BLE edema. Nicola Jordan [address] [place] [phone], [facility] 12/22/2024 14:43:52 OBGyn Episode No OBEpisode recorded.
--- OUTSIDE RECORDS SUMMARY | 2024-12-25 01:13 | XMS_ITS | Encounter Summary ---
Author Organization [facility] Address [address] [place] [address] Care Team Providers Care Research Tech Name Role Phone Enrico Mendoza MD Primary Care Provider [phone] Reason for Referral * Radiology Services (Routine) - Closed Specialty Diagnoses / Procedures Referred By Contac t Referred To Contact Diagnoses Visit for screening mammogram Procedures MAMMO 3D SCREEN BILATERAL MOBILE Naina Navarrete FNP Referral ID Status Reason Start Date Expiration Date Visits Re quested Visits Authorized [id number] Closed 12/03/2018 01/03/2020 1 1 Encounter Details Date Type Department Care Team (Latest Contact Info) Description 12/03/2018 Ancillary Orders [facility] [place] [address] [facility] [address] [place] [phone] Naina Navarrete FNP NO ADDRESS ON FILE Visit for screening mammogram Social History Tobacco Use Types Packs/Day Years Used Date Smoking Tobacco: Former Cigarettes Q uit: 07/17/2015 Smokeless Tobacco: Never Alcohol Use Standard Drinks/Week Comments No 0 (1 standard drink = 0.6 oz pur e alcohol) Comments No Sex and Gender Information Value Date Recorded Sex Assigned at Not on file 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
--- OUTSIDE RECORDS SUMMARY | 2024-12-25 01:13 | XMS_ITS | Continuity of Care Document ---
Author Organization [facility] Kenneth, Jaime, [facility] ([facility]) Address [address] [place] [address] Assessment No assessment recorded. Plan of Treatment [...] Modified By Organization Details Last Modified Time 12/20/2024 [id number] Did well with stopping all antipsychotics. Will decrease buspar to 5mg bid. Not available 12/20/2024 16:39:05 Reason for Referral None Reported. Problems Name Problem SNOMED Code Status Onset Date Resolution Date Notes Provider Name and Address Organization Details Recorded Time Anxiety 88915738 [facility] [address] [facility] [facility] 17:23:13 Restlessness and agitation 800920911 Active [address] [facility] 5 15:26:43 Obsessive-com pulsive disorder 906231933 Active [address] [facility], [facility] 5 15:26:51 Iron deficiency anemia 78210116 Active [address] [facility] 5 15:26:58 Mixed anxiety and depressive disorder 906988697 Active [address] [facility], Jaime 5 15:27:06 Insomnia 953617308 Active [address] [facility], Jaime 5 15:27:20 Alzheimer's disease 49002597 Active [address] [facility], Jaime 5 16:20:30 Bilateral lower limb edema 414282142 Active [address] [facility], Jaime 5 14:38:42 Problem Notes None recorded. Medical [...] Address Organization Details Last Updated DateTime 5 89274.2 9 g 84 /min 18 /min 97.4 [degF] 96 % 96 % 124/80 mm[Hg] AMELIA BOLIVAR [facility], .LTrinhTrinh 5 16:36:49 Social History None recorded. Functional Status None recorded. Mental Status None recorded. Family History Nothing Reported. Medical History No medical history recorded. Gynecological HistoryNo gynecological history recorded. Obstetrics History GPAL:G 0 P 0 0 0 0 Immunizations Vaccine Type Date Status Note Provider Nam e and Address Organization Details Recorded Time Influenza, split virus, trivalent, PF 1 completed Not Available [facility] 12/22/2024 13:01:29 Influenza, split virus, trivalent, PF 3 completed Not Available [facility] 12/22/2024 13:01:29 Influenza, MDCK, quadrivalent, PF 7 completed Not Available [facility] 12/22/2024 13:01:29 pneumococcal polysaccharide PPV23 7 completed Not Available [facility] 12/22/2024 13:01:29 Influenza, split virus, quadrivalent, PF 8 completed Not Available [facility] 12/22/2024 13:01:29 Influenza, split virus, quadrivalent, PF 8 completed Not Available [facility] 12/22/2024 13:01:29 COVID-19, mRNA, LNP-S, PF, 100 mcg/0.5mL dose or 50 mcg/0.25mL dose 1 completed Not Available [facility] 12/22/2024 13:01:29 COVID-19, mRNA, LNP-S, bivalent, PF, 50 mcg/0.5 mL or 25mcg/0.25 mL dose 3 completed Not Available [facility] 12/22/2024 13:01:29 Past Encounters Encounter ID Performer Location Encounter Start Date Encounter Closed Date Diagnosis/Indication Diagnosis SNOMED-CT Code Diagnosis ICD10 Code Diagnosis Note [id number] Nicola Jordan DO [facility] ([facility]) [address] [place] [address] 12/20/2024 08:36:10 12/21/2024 10:50:05 Obsessive-compulsive disorder 457469398 F42.9 Mixed anxi ety and depressive disorder 391133446 F41.8 Alzheimer's disease 2692 9004 G30.0 Insomnia 815139077 G47.0 0 Health Concerns Section Related Observation LastModified by Organization Detai ls LastModified Time None Recorded Concern Status LastModified by Organization Details LastModified Time None Recorded Payers Encounter Date Sequence Insurance Name Policy Number Policy Coreas Covered Member ID Coreas Member ID Guarantor Name 12/20/2024 1 [place] Henrietta Ashley [id number] Henrietta Ashley 12/20/2024 2 [place] Henrietta Ashley [id number] Henrietta Ashley Notes Date Note Type Note Provider Name and Address Organization Details Recorded Time 12/20/2024 text/html Generalized Anxi ety DisorderReported bypatient.Onset/Timing :years Severity:moderate Alleviating Factors:other medications Associated Symptoms:excess anxiety no issues reported by staff. Nicola Jordan, DO [address] [place] [address], [phone], [facility] L[facility]vy 12/20/2024 16:48:59 OBGyn Episode No OBEpisode recorded.
--- OUTSIDE RECORDS SUMMARY | 2024-12-25 01:13 | XMS_ITS | Continuity of Care Document ---
Author Organization [facility] Kenneth, Jaime, [facility] ([facility]) Address [address] [place] [address] Assessment No assessment recorded. Plan of Treatment [...] Modified By Organization Details Last Modified Time 12/22/2024 [id number] Blood pressure o n the low side, but likely will not tolerate compression wraps. Staff to try compression wraps and will start hctz 12.5 daily. [email or web address] Not available 12/22/2024 14:39:45 Reason for Referral None Reported. Problems Name Problem SNOMED Code Status Onset Date Resolution Date Notes Provider Name and Address Organization Details Recorded Time Anxiety 82444467 Active 2024 [facility] 17:[facility]:13 Restlessness and agitation 586157859 Active 2024 AMELIA moya [facility] LTrinhL.CTrinh 15:26:43 Obsessive-com pulsive disorder 824714909 Active 2024 [facility]IA [facility]oya [facility] 15:26:51 Iron deficiency anemia 02551659 Active 2024 [facility] 15:26:58 Mixed anxiety and depressive disorder 883871867 Active 2024 AMELIA moya [facility] 5 15:27:06 Insomnia 629164887 [facility] 15:27:20 Alzheimer's disease 05805367 Active 2024 AMELIA moya [facility], L.L.CTrinh 5 16:20:30 Bilateral lower limb edema 958193293 Active 2024 AMELIA moya [facility], L.L.CTrinh 5 14:38:42 Problem Notes None recorded. Medical [...] Address Organization Details Last Updated DateTime 5 12307.2 9 g 84 /min 18 /min 97.6 [degF] 96 % 96 % 124/80 mm[Hg] AMELIA BOLIVAR [facility], TayoTrinh 5 14:25:51 Social History None recorded. Functional Status None recorded. Mental Status None recorded. Family History Nothing Reported. Medical History No medical history recorded. Gynecological HistoryNo gynecological history recorded. Obstetrics History GPAL:G 0 P 0 0 0 0 Immunizations Vaccine Type Date Status Note Provider Nam e and Address Organization Details Recorded Time Influenza, split virus, trivalent, PF 1 completed Not Available [facility] 12/22/2024 13:01:29 Influenza, split virus, trivalent, PF 3 completed Not Available [facility] 12/22/2024 13:01:29 Influenza, MDCK, quadrivalent, PF 7 completed Not Available [facility] 12/22/2024 13:01:29 pneumococcal polysaccharide PPV23 7 completed Not Available [facility] 12/22/2024 13:01:29 Influenza, split virus, quadrivalent, PF 8 completed Not Available [facility] 12/22/2024 13:01:29 Influenza, split virus, quadrivalent, PF 8 completed Not Available [facility] 12/22/2024 13:01:29 COVID-19, mRNA, LNP-S, PF, 100 mcg/0.5mL dose or 50 mcg/0.25mL dose 1 completed Not Available [facility] 12/22/2024 13:01:29 COVID-19, mRNA, LNP-S, bivalent, PF, 50 mcg/0.5 mL or 25mcg/0.25 mL dose 3 completed Not Available [facility] 12/22/2024 13:01:29 Past Encounters Encounter ID Performer Location Encounter Start Date Encounter Closed Date Diagnosis/Indication Diagnosis SNOMED-CT Code Diagnosis ICD10 Code Diagnosis Note [id number] Nicola Jordan DO [facility] ([facility]) [address] [place] [address] 12/20/2024 08:36:10 12/21/2024 10:50:05 Obsessive-compulsive disorder 813194888 F42.9 Mixed anxi ety and depressive disorder 071804967 F41.8 Alzheimer's disease 2692 9004 G30.0 Insomnia 206789153 G47.0 0 [id number] Nicola Jordan DO [facility] ([facility]) [address] [place] [address] 12/22/2024 13:01:18 12/22/2024 16:07:52 Bilateral lower limb edema 130218363 R60.0 Health Concerns Section Related Observation LastModified by Organization Detai ls LastModified Time None Recorded Concern Status LastModified by Organization Details LastModified Time None Recorded Payers Encounter Date Sequence Insurance Name Policy Number Policy Coreas Covered Member ID Coreas Member ID Guarantor Name 12/22/2024 1 [place] Henrietta Ashley [id number] Henrietta Ashley 12/22/2024 2 [place] Henrietta Ashley [id number] Henriteta Ashley Notes Date Note Type Note Provider Name and Address Organization Details Recorded Time 12/22/2024 text/html Generalized Anxi ety DisorderReported bypatient.Onset/Timing :years Severity:moderate Alleviating Factors:other medications Associated Symptoms:excess anxiety staff reports increased BLE edema. Nicola Jordan DO [address] [place] [address], [phone], [facility] 12/22/2024 14:43:52 OBGyn Episode No OBEpisode recorded.
--- NOTE | 2024-12-25 01:52 | W.ED.EXTPRO ---
HPI - Extremity Problem General: Chief complaint: Extremity Problem,Nontraumatic Stated complaint: leg swelling Time Seen by Provider: 12/25/24 01:34 History of Present Illness: 69-year-old female detention patient presenting with chronic bilateral leg swelling with some redness. There evidently was some concern in the detention about an ulceration on one of the toes of the left foot concerning for worsening infection. The patient has had no fever. She is having no pain. She is a poor historian. Related Data Home Medications ?Medication ?Instructions ?Recorded ?Confirmed acetaminophen 325 mg tablet 650 mg PO Q4H PRN pain or fever 02/23/24 02/23/24 alprazolam 0.5 mg tablet 0.5 mg PO Q8H PRN Anxiety 02/23/24 02/23/24 bisacodyl 10 mg rectal suppository 10 mg [place] DAILY PRN Constipation 02/23/24 02/23/24 (Dulcolax (bisacodyl)) buspirone 10 mg tablet 10 mg PO TID 02/23/24 02/23/24 duloxetine 60 mg capsule,delayed 60 mg PO DAILY 02/23/24 02/23/24 release eszopiclone 3 mg tablet 3 mg PO BEDTIME 02/23/24 02/23/24 furosemide 20 mg tablet (Lasix) 20 mg PO DAILY 02/23/24 02/23/24 lamotrigine 100 mg tablet 50 mg PO TID 02/23/24 02/23/24 magnesium hydroxide 400 mg/5 mL 2,400 mg PO DAILY PRN Constipation 02/23/24 02/23/24 oral suspension (Milk of Magnesia) melatonin 1 mg tablet 1 mg PO DAILY 02/23/24 02/23/24 memantine 5 mg tablet 5 mg PO BID 02/23/24 02/23/24 potassium chloride 20 mEq 20 meq PO DAILY 02/23/24 02/23/24 tablet,extended release risperidone 0.5 mg tablet 1.5 mg PO QPM 02/23/24 02/23/24 risperidone 1 mg tablet 1 mg PO DAILY 02/23/24 02/23/24 sodium phosphates 19 gram-7 118 ml WA DAILY PRN Constipation 02/23/24 02/23/24 gram/118 mL enema (Fleet Enema) Previous Rx's ?Medication ?Instructions ?Recorded cefdinir 300 mg capsule 300 mg PO BID #14 caps 02/23/24 cephalexin 500 mg capsule 500 mg PO Q6H 10 days #40 caps 12/25/24 Allergies Allergy/AdvReac Type Severity Reaction Status Date / Time No Known Allergies Allergy Verified 02/23/24 10:34 Course Vital Signs: Vital signs: Vital Signs Temperature 97.8 F 12/25/24 01:11 Pulse Rate 79 12/25/24 02:40 Respiratory Rate 18 12/25/24 01:11 Blood Pressure 139/79 12/25/24 02:40 Pulse Oximetry 99 12/25/24 02:40 Oxygen Delivery Me thod Room Air 12/25/24 01:11 MDM - Extremity (Nontraumatic) Medical Decision Making 69-year-old female with chronic bilateral leg swelling. She does have some redness to the left lower leg and diffusely to the toes. There is no drainage. There is minimal ulceration to the plantar toe surfaces. She will be placed on Keflex. Discharged back to the detention. Return for worsening symptoms No radiology studies performed this visit Discharge Plan Discharge Patient Disposition: Home Clinical Impression: Cellulitis Condition: Stable Prescriptions: New cephalexin 500 mg capsule 500 mg PO Q6H 10 Days Qty: 40 0RF No Action acetaminophen 325 mg Tablet 650 mg PO Q4H PRN (Reason: pain or fever) alprazolam 0.5 mg tablet 0.5 mg PO Q8H PRN (Reason: Anxiety) Milk of Magnesia 400 mg/5 mL Suspension 2,400 mg PO DAILY PRN (Reason: Constipation) Dulcolax (bisacodyl) 10 mg Suppository 10 mg WA DAILY PRN (Reason: Constipation) buspirone 10 mg tablet 10 mg PO TID Fleet Enema 19-7 gram/118 mL Enema 118 ml WA DAILY PRN (Reason: Constipation) Lasix 20 mg Tablet 20 mg PO DAILY risperidone 1 mg tablet 1 mg PO DAILY lamotrigine 100 mg tablet 50 mg PO TID risperidone 0.5 mg tablet 1.5 mg PO QPM melatonin 1 mg Tablet 1 mg PO DAILY memantine 5 mg tablet 5 mg PO BID duloxetine 60 mg capsule,delayed release(DR/EC) 60 mg PO DAILY eszopiclone 3 mg tablet 3 mg PO BEDTIME potassium chloride 20 mEq Tablet Extended Release 20 meq PO DAILY cefdinir 300 mg capsule 300 mg PO BID Qty: 14 0RF Discharge Orders: Discharge ED (Routine); Ordered 12/25/24 Ordered By: Chin Mitchell Referrals: Nicola Jordan DO [Primary Care Provider, Internal Medicine] - 1-3 days Patient Instructions: Cellulitis (ED), Opioid Safety, Pain Management, Patient Portal & Kelly Instructions Print Language: Macanese Coding Level of Care Code ED Boat Assembler for Leonard Cortes
[2024-12-25 02:40] VITALS: BP 139/79; PULSE 79; O2SAT 99
== END 2024-12-25 02:46 | disposition home or self-care (01) ==
PROVIDERS: Emergency Provider Emergency Medicine; PCP Internal Medicine
DX: L03.116 Cellulitis of left lower limb (principal); R60.0 Localized edema
CPT/HCPCS: 99283; J9999

== ENCOUNTER 2025-02-20 15:34 | Inpatient (IN) | payer MEDICARE, MEDICAID, SELFPAY ==
--- OUTSIDE RECORDS SUMMARY | 2011-09-17 06:00 | XMS_ITS | Continuity of Care Document ---
Author Organization [facility] Address [address] [id number] [address] Phone Care Team Providers Care Printing Sales Representative Name Role Phone Unavailable Unavailable Unavailable Allergies, Adverse Reactions, Alerts Substance Reaction Status Criticality Penicillins Active No Information Medications Medication Instructions Dosage Effective Dates (start - stop) Status Comments clindamycin 150 mg Cap take 1 capsule (150MG) by oral route every 6 hours 150 MG - Active hydrocodone-acetamino phen 5 mg-325 mg Tab take 1 tablet by oral route every 6 hours as needed for pain 1.00 tablet - Active nadolol 20 mg Tab take 1 tablet (20MG) by oral route every day 20 MG - Active spironolactone 50 mg Tab take 1 tablet (50MG) by oral route every day 50 MG - Active omeprazole 20 mg Cap, Delayed Release take 1 capsule (20MG) by oral route every day before a meal 20 MG - Active Lexapro 10 mg Tab take 1 tablet (10MG) by oral route every day 10 MG - Active CALCIUM WITH VITAMIN D3 (unknown strength) Not Available - Active Procedures Procedure Date Extraction, Erupted Tooth Or Exposed Lili t (Elev Extraction, Erupted Tooth Or Exposed Lili t (Elev Extraction, Erupted Tooth Or Exposed Lili t (Elev Extraction, Erupted Tooth Or Exposed Lili t (Elev Extraction, Erupted Tooth Or Exposed Lili t (Elev Extraction, Erupted Tooth Or Exposed Lili t ( Extraction, Erupted Tooth Or Exposed Lili t (Elevati Extraction, Erupted Tooth Or Exposed Lili t (Elevati Extraction, Erupted Tooth Or Exposed Lili t (Elevati EDR Approval Note Comprehensive Oral Evaluatio n New Or Established Panoramic Film EDR Approval Note EDR Approval Note EDR Approval Note Advance Directives Directive Yes / No Effective Date File Name Resuscitation Not Answered N/A N/A Life Support Not Answered N/A N/A Intubation Not Answered N/A N/A Antibiotics Not Answered N/A N/A IV Fluid Support Not Answered N/A N/A Tube Feed Not Answered N/A N/A Other Directive N/A N/A WARNING:The information contained in this section is historical and is provided for information only and does not constitute a legal document or any assurance that the information is still accurate. Please verify the information with the sanchez of the legal document before using it for clinical purposes. Encounters Encounter Description Practice Location Reason(s) For Visit Diagnoses Date Provider Providers Copied on Encounter [facility], [id number], [id number], tel:[phone] [facility] Dental examination 2 No Information [facility], [id number] [place], [place], [id number], [place] tel:[phone] [facility] Dental examination 2 No Information Family History Family Member Type Diagnosis Age At Onset No Information Payers Payer name Insurance type Covered libertarian ID luca gem(s) D Medicaid [id number] Social History Type Description Quantity Date Captured Comments Alcohol Use Details No Caffeine Use Details Unknown Tobacco Use Status Smoking Status No Information Sex Female Chief Complaint And Reason For Visit No Information Reason For Referral Reason For Referral No Information History Of Present Illness Encounter Date Complaint History Of Prese nt Illness No Information Functional Status Date Functional Assessmen t No Information Instructions Date Instruction Additional Infor mation No Information Assessments Type Assessment Date No Information Patient Care Teams Name Effective Dates (start - stop) Status Members No Information
[2025-02-20] VITALS (9 sets, daily range): BP systolic 135–151; BP diastolic 65–94; PULSE 79–88; RESP 14–16; TEMP 36.5–36.8; O2SAT 95–100; BMI 28.1
--- NOTE | 2025-02-20 15:35 | XRR_ITS ---
PROCEDURE INFORMATION: Exam: XR Right Ribs with PA Chest Exam date and time: 02/20/2025 3:53 PM Age: 69 years old Clinical indication: Painful respiration; Additional info: RT rib pain post fall; SOB TECHNIQUE: Imaging protocol: Radiologic exam of the right ribs with PA chest. 5 image(s) are submitted. Views: 3 views COMPARISON: CR XR chest 1V portable 00004 02/23/2024 11:13 AM FINDINGS: Lungs: pulmonary venous congestion bilaterally, progressed since prior study. Trace right-sided pleural effusion, new since prior study. Low bilateral lung volumes. Moderate size right apical pneumothorax measuring 2.3 cm in craniocaudal dimension. Subcutaneous emphysema along lateral chest wall, consistent with underlying rib injury and lung laceration. There is fracture of right-sided lateral 6 and possible 5th rib with less than 3 mm bony displacement at 6th rib level. Pleural spaces: See Lungs finding. Heart/Mediastinum: Unremarkable. No cardiomegaly. Bones/joints: See Lungs finding. XR/XR ribs RT mn 3V w [id number] IMPRESSION: Pulmonary venous congestion bilaterally, progressed since prior study. Trace right-sided pleural effusion, new since prior study. Low bilateral lung volumes. Moderate size right apical pneumothorax measuring 2.3 cm in craniocaudal dimension. Subcutaneous emphysema along lateral chest wall, consistent with underlying rib injury and lung laceration. There is fracture of right-sided lateral 6 and possible 5th rib with less than 3 mm bony displacement at 6th rib level. COMMENT: THIS REPORT CONTAINS FINDINGS THAT MAY BE CRITICAL TO PATIENT CARE. The exam findings were verbally communicated by me to MIKE SANCHEZ via telephone conference at 5:04 PM CDT on 02/20/2025. The findings were acknowledged and understood.
--- NOTE | 2025-02-20 15:38 | ED_ITS ---
HPI - Fall 2 General: Chief Complaint: Fall Stated Complaint: fall-right rib pain Time Seen by Provider: 02/20/25 15:35 Source: patient and EMS Mode of arrival: EMS Limitations: altered mental status History of Present Illness: 69-year-old female has a history dementi a she is here from [facility] after a fall last night she complains of rib pain having mild rib pain currently. Did not hit her head. Patient is able to tell me her name but not really able answer any other questions. Related Data Home Medications ?Medication ?Instructions ?Recorded ?Confirmed acetaminophen 325 mg tablet 650 mg PO Q4H PRN pain or fever 02/23/24 02/20/25 bisacodyl 10 mg rectal suppository 10 mg NM DAILY PRN Constipation 02/23/24 02/20/25 (Dulcolax (bisacodyl)) eszopiclone 3 mg tablet 3 mg PO BEDTIME 02/23/2401/07 lamotrigine 100 mg tablet 50 mg PO TID 02/23/24 magnesium hydroxide 400 mg/5 mL 2,400 mg PO DAILY PRN Constipation 02/23/24 02/20/25 oral suspension (Milk of Magnesia) melatonin 1 mg tablet 1 mg PO BEDTIME 02/23/2401/07 memantine 5 mg tablet 5 mg PO BID 02/23/24 5 sodium phosphates 19 gram-7 118 ml NM DAILY PRN Consti pation 02/23/24 02/20/25 gram/118 mL enema (Fleet Enema) sodium chloride 0.65 % nasal spray 1 spray intranasal BID PRN sinus 02/20/25 02/20/25 aerosol dryness Allergies Allergy/AdvReac Type Severity Reaction Status Date / Time No Known Allergies Allergy Verified 02/23/24 10:34 Review of Systems 2 General: Reports: ROS unobtainable due to mental status PFSH ED 2 PFSH: Medical History (Updated 02/20/25 @ 17:17 by Puneet Oden MD) DNR (do not resuscitate) long-term resident Dementia Physical Exam 2 Const: COMMON NORMALS: negative for patient oriented x3 HENMT: COMMON NORMALS: normocephalic and atraumatic HEAD & SCALP: n ormocephalic and atraumatic Eye: COMMON NORMALS: conjunctivae normal CONJUNCTIVA: Yes conjunctivae normal Neck/C-Spine: COMMON NORMALS: full ROM and supple Chest: COMMONS NORMALS: normal inspection of the chest OTHER: tenderness over right chest wall Resp: COMMON NORMALS: normal respiratory effort, No retractions, No use of accessory muscles and clear to auscultation bilaterally AUSCULTATION: clear to auscultation bilaterally Cardio: COMMON NORMALS: regular rate, regular rhythm and No murmurs present (Cardio) RATE: regular rate RHYTHM: regular rhythm GI: COMMON NORMALS: Normal to inspection, nondistended, normoactive bowel sounds present, Soft to palpation, non-tender and no masses PALPATION: Yes Soft to palpation Extremity: COMMON NORMALS: normal to inspection and full ROM Neuro: COMMON NORMALS: moves all extremities and no focal motor deficits; negative for patient oriented x3 Psych: COMMON NORMALS: Normal thought process present and cooperative T HOUGHT PROCESS: Normal thought process present Skin: COMMON NORMALS: no rashes or lesions noted and no wounds GENERAL SKIN EXAM: no rashes or lesions noted Course 2 Vital Signs: Vital signs: Vital Signs Temperature 98.3 F 02/20/25 15:37 Pulse Rate 80 02/20/25 15:37 Respiratory Rate 14 02/20/25 15:37 Blood Pressure 141/65 02/20/25 15:37 Pulse Oximetry 98 02/20/25 15:37 MDM - Fall Medical Decision Making Patient presents with rib fracture along with pneumothorax from a fall at [facility]. No other injuries from the fall noted patient is asymptomatic here she is not having any pain she is not having any shortness of breath pulse ox here is 99% on room air did speak to hospitalist along with surgeon on-call Dr. Almaraz will admit at this time to monitor will not place a chest tube in at this time. Medical Records I reviewed the patient's medical records. Lab Data 02/20/25 16:40 02/20/25 16:40 Radiology Impressions Ribs X-Ray 02/20/25 15:35 IMPRESSION: Pulmonary venous congestion bilaterally, progressed since prior study. Trace right-sided pleural effusion, new since prior study. Low bilateral lung volumes. Moderate size right apical pneumothorax measuring 2.3 cm in craniocaudal dimension. Subcutaneous emphysema along lateral chest wall, consistent with underlying rib injury and lung laceration. There is fracture of right-sided lateral 6 and possible 5th rib with less than 3 mm bony displacement at 6th rib level. COMMENT: THIS REPORT CONTAINS FINDINGS THAT MAY BE CRITICAL TO PATIENT CARE. The exam findings were verbally communicated by me to MIKE SANCHEZ via telephone conference at 5:04 PM CDT on 02/20/2025. The findings were acknowledged and understood. Laboratory Results WBC 4.76 10^3/uL (3.29-11.43) 02/20/25 16:40 RBC 4.27 10^6/uL (3.85-5.65) 02/20/25 16:40 Hgb 13.00 g/dL (11.27-16.99) 02/20/25 16:40 Hct 38.8 % (36-47) 02/20/25 16:40 MCV 90.9 fl (85-98) 02/20/25 16:40 MCH 30.4 pg (27-33) 02/20/25 16:40 MCHC 33.5 g/dL (30-55) 02/20/25 16:40 RDW 16.2 % (12.1-15.1) H 02/20/25 16:40 Plt Count 125 10^3/cmm (157-399) L 02/20/25 16:40 MPV 12.1 fL (7.4-10.4) H 02/20/25 16:40 Neut % (Auto) 70.6 % 02/20/25 16:40 Lymph % (Auto) 10.9 % 02/20/25 16:40 [place] % (Auto) 15.8 % 02/20/25 16:40 Eos % (Auto) 1.9 % 02/20/25 16:40 Baso % (Auto) 0.4 % 02/20/25 16:40 Neut # (Auto) 3.36 10^3/uL (1.8-7.7) 02/20/25 16:40 Lymph # (Auto) 0.5 10^3/uL (0.8-4.8) L 02/20/25 16:40 [place] # (Auto) 0.8 10^3/uL (0.2-0.9) 02/20/25 16:40 Eos # (Auto) 0.1 10^3/uL (0.0-0.8) 02/20/25 16:40 Baso # (Auto) 0.0 10^3/uL (0.0-0.1) 02/20/25 16:40 Nucleated RBC % (auto) 0 % 02/20/25 16:40 Nucleated RBCs # 0.0 /100WBC 02/20/25 16:40 All radiology interpretation(s) finalized by discharge Discharge Plan Discharge Patient Disposition: Admitted As Inpatient Clinical Impression: Right rib fracture Fall Qualifiers: Encounter type: initial encounter Qualified Code(s): W19.XXXA - Unspecified fall, initial encounter Pneumothorax Qualifiers: Pneumothorax type: traumatic Encounter type: initial encounter Qualified Code(s): S27.0XXA - Traumatic pneumothorax, initial encounter Condition: Stable Coding Level of Care Code ED Hoop Flaring Machine Operator Helper for Leonard Cortes
--- OUTSIDE RECORDS SUMMARY | 2025-02-20 15:55 | XMS_ITS | Encounter Summary ---
Author Organization [facility] Address [address] [place] [address] Care Team Providers Care Lines Tender Name Role Phone Enrico Mendoza MD Primary Care Provider [phone] Reason for Referral * Radiology Services (Routine) - Closed Specialty Diagnoses / Procedures Referred By Contac t Referred To Contact Diagnoses Visit for screening mammogram Procedures MAMMO 3D SCREEN BILATERAL MOBILE Naina Navarrete FNP Referral ID Status Reason Start Date Expiration Date Visits Re quested Visits Authorized [id number] Closed 12/03/2018 01/03/2020 1 1 Encounter Details Date Type Department Care Team (Latest Contact Info) Description 12/03/2018 Ancillary Orders [employer] [facility] [place] [address] [facility] [address] [place] [id number] Naina Navarrete FNP NO ADDRESS ON FILE [...] on file 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 Naina Navarrete RADIO INTERFERENCE SUPERVISOR MAMMO ORDERABLES Final Result documented in this encounter Visit Diagnoses Diagnosis Visit for screening mammogram Other screening mammogram documented in this encounter Care Teams Lines Tender Relationship Specialty Start Date End Date Enrico Mendoza MD [address] [place] [address] PCP - General Family Practice 06/30/15 documented as of this encounter
--- OUTSIDE RECORDS SUMMARY | 2025-02-20 15:55 | XMS_ITS | Clinical Summary ---
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 Gender Identity Not on file Sexual Orientation [...] BREAST CANCER SCREENING 01/09/2020 01/08/2019 [place] Preventative Visit/Annual Wellness Visit 06/16/2024 INFLUENZA VACCINE (#1) 2025 0, 04/28/2018, 07/01/2017, Additional history exists Medical Devices Implanted Type Area Manufacturing Technologist Device Identifier Shelf Expiration Date Model / Serial / Lot Log [id number] - Endoscopy Ligation - 1 - Ligator Band Super 7 [id number] Implanted:Qty: 1 on 09/24/2011 at [facility] Other Esophagus [employer]- ENDOSCOPY 07/26/2012 4225-40 / / [id number] Description:6 bands placed. pt chapis well Log [id number] - Endoscopy Ligation - 1 - Ligator Band Super 7 [id number] Implanted:Qty: 1 on 10/15/2011 at [facility] Other Esophagus [employer] ENDOSCOPY 07/17/2012 4225-40 / [id number] / [id number] Description:2 bands used Procedures Procedure Name Priority [...] or microcalcifications to suggest malignancy. Naina Navarrete RESIDENCE COUNSELOR MAMMO ORDERABLES Final Result from Last 3 Months or Most Recently Relevant to Health Maintenance Insurance MEDICAID [place] DUAL COMPLETE MCR HMO SNP Advance Directives For more information, please contact: [phone] * Full Code (Latest Code Status on [...] 8:29 AM 10/16/2011 2:01 AM Care Teams Lead Web Developer Relationship Specialty Start Date End Date Enrico Mendoza MD [address] [place] [address] PCP - General Family Practice 06/30/15
--- OUTSIDE RECORDS SUMMARY | 2025-02-20 15:55 | XMS_ITS | Clinical Summary ---
Author Organization 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 pt chapis well Log [id number] - Endoscopy Ligation - 1 - Ligator Band Super 7 [id number] Implanted:Qty: 1 on 10/15/2011 Other Esophagus [employer] ENDOS[employer] 07/17/2012 4225-40 / 4225 / [id number] Description:2 bands used Procedures Procedure Name Priority [...] microcalcifications to suggest malignancy. Procedure Note Bryan Vagras MD - 11/15/2020 Bilateral Digital Mammogram with [...] or microcalcifications to suggest malignancy. Naina Navarrete STATION MANAGER MAMMO ORDERABLES Final Result from Last 3 Months or Most Recently Relevant to Health Maintenance Insurance [place] [address] [place] [place] [address] DUAL COMPLETE O [facility] [id number]
--- NOTE | 2025-02-20 16:15 | ECG_ITS ---
[employer] Test Date: 2025-02-20 Pat Name: Henrietta Ashley Department: Room: Gender: Female Plumbing Inspector: : [id number] Requested By: Esther Langford Order Number: [id number] Reading MD: ROSE HARGROVE Measurements Intervals [place] Rate: 78 P: 26 IA: 156 QRS: 4 QRSD: 104 T: 75 QT: 390 QTc: 446 Interpretive Statements SINUS RHYTHM POSSIBLE LEFT ATRIAL ENLARGEMENT [-0.1mV P-WAVE IN V1/V2] NONSPECIFIC ST & T-WAVE ABNORMALITY Compared to ECG 02/23/2024 12:46:11 T-wave abnormality now present Myocardial infarct finding no longer present Electronically Signed On 02-21-2025 10:54:41 CDT by ROSE HARGROVE [email or web address]
[2025-02-20 16:52] LABS: Hematocrit 38.8 % (36-47); Hemoglobin 13.00 g/dL (11.27-16.99); Mean Corpuscular HGB Conc 33.5 g/dL (30-55); Mean Corpuscular Hemoglobin 30.4 pg (27-33); Mean Corpuscular Volume 90.9 fl (85-98); Nucleated Red Blood Cells % 0 %; Platelet Count 125 10^3/cmm (157-399); Red Blood Count 4.27 10^6/uL (3.85-5.65); White Blood Count 4.76 10^3/uL (3.29-11.43)
--- NOTE | 2025-02-20 16:52 | PC.NURSE ---
pt placed on 5L nasal cannula per Dr. Langford's verbal order. pt tolerated well. family at bedside.
--- NOTE | 2025-02-20 16:57 | PM.HP ---
Providers/Chief Complaint Primary Care Provider: Nicola Jordan DO Chief Complaint: fall-right rib pain History of Present Illness Henrietta Ashley is a 69 year old female with past medical history of dementia presented to the ER after [facility]. As per the reporting patient did not hit her head. Patient seems to be at her baseline AO x 1 currently. Complaining of mild rib pain. X-ray showed small pneumothorax hence medicine was consulted for admission and monitoring. Surgery has been consulted from the ER. CBC is available without leukocytosis with thrombocytopenia and BMP is awaited for now. Review of Systems General: Reports: 10 or more systems reviewed and unremarkable except in HPI and below Const: Denies: fever(s), chills, body aches, change in appetite, change in weight, malaise, night sweats, diaphoresis, change in sleep pattern, daytime sleepiness or snoring Eyes: Denies: change in vision, blurry vision, photophobia, eye discomfort or eye discharge ENMT: Denies: throat pain, enlarged tonsils, hoarseness, mouth pain, oral sores, dry mouth, tinnitus, nasal congestion or post nasal drip Card: Denies: chest pain, palpitations, irregular heart rhythm, edema, swelling of feet/ankles, lightheadedness, syncope, pre-syncope, dyspnea on exertion, orthopnea, leg pain with exertion or acrocyanosis Resp: Denies: dyspnea, productive cough, non-productive cough, wheezing, stridor, pain on inspiration, change in phlegm color, hemoptysis or chest congestion GI: Denies: abdominal pain, nausea, vomiting, hematemesis, coffee ground emesis, dysphagia, heartburn, diarrhea, constipation, bloating, GI cramping, change in bowel habits, pain on defecation, hematochezia or melena : Denies: flank pain, dysuria, urinary frequency, urinary urgency, urinary hesitancy, nocturia or hematuria Musc: Denies: neck pain, back pain, extremity pain, joint pain, joint swelling, joint redness, joint stiffness or limited range of motion Neuro: Denies: headache(s), numbness in extremities, weakness in extremities, sensory changes, lack of coordination, difficulty walking, frequent falls, dizziness, vertigo, confusion, Slurred speech present, difficulty communicating thoughts or seizure-like activity Psych: Denies: anxiety, depression, mood swings, panic attacks, hopelessness or irritability Endo: Denies: polyuria, polydipsia, tired all the time, cold intolerance, excessive sweating, flushing or heat intolerance [place]/Lymph: Denies: easy bruising or easy bleeding All/Imm: Denies: tongue swelling, facial swelling or acute wheezing Medications/Allergies Home Medications ?Medication ?Instructions ?Recorded ?Confirmed ?Last Taken ?Type acetaminophen 325 mg tablet 650 mg PO Q4H PRN pain or fever 02/23/24 02/20/25 02/22/24 History bisacodyl 10 mg rectal suppository 10 mg [place] DAILY PRN Constipation 02/23/24 02/20/25 Unknown History (Dulcolax (bisacodyl)) eszopiclone 3 mg tablet 3 mg PO BEDTIME 02/23/24 02/20/25 02/19/25 History lamotrigine 100 mg tablet 50 mg PO TID 02/23/24 02/20/25 02/20/25 History magnesium hydroxide 400 mg/5 mL 2,400 mg PO DAILY PRN Constipation 02/23/24 02/20/25 Unknown History oral suspension (Milk of Magnesia) melatonin 1 mg tablet 1 mg PO BEDTIME 02/23/24 02/20/25 02/19/25 History memantine 5 mg tablet 5 mg PO BID 02/23/24 02/20/25 02/20/25 History sodium phosphates 19 gram-7 118 ml [place] DAILY PRN Constipation 02/23/24 02/20/25 Unknown History gram/118 mL enema (Fleet Enema) sodium chloride 0.65 % nasal spray 1 spray intranasal BID PRN sinus 02/20/25 02/20/25 Unknown History aerosol dryness Allergies Allergy/AdvReac Type Severity Reaction Status Date / Time No Known Allergies Allergy Verified 02/23/24 10:34 PFSH Acute PFSH: Medical History (Updated 02/20/25 @ 17:17 by Puneet Oden MD) DNR (do not resuscitate) [facility] resident Dementia Vitals/I&O/Wt Last Vital Signs Temp 98.3 F 02/20/25 15:37 Pulse 80 02/20/25 15:37 Resp 14 02/20/25 15:37 BP 141/65 02/20/25 15:37 Pulse Ox 98 02/20/25 15:37 02/20/25 02/20/25 02/20/25 06:59 14:59 22:59 Intake Total 0 / 0 Balance 0 / 0 Weight last 48 hrs Weight 81.647 kg Physical Exam Narrative: General: No acute distress, A AO x 1, pleasant HEENT: PERRLA, pupils bilaterally equal and reactive Chest: Normal vesicular breath sounds, no added sounds, equal good air entry bilaterally CVS: S1-S2 regular, no murmurs, no tachycardia, no gallops, no rubs Abdomen: Soft, nontender, no organomegaly, bowel sounds present Neuro: No focal deficits, no facial deformity, AO x3, power 5/5 in all limbs Data 02/20/25 16:40 02/20/25 16:40 A&P Assessment and plan 1. Right rib fracture: Morphine 1 mg 4 hours as needed for pain. Incentive spirometry. If needed can use lidocaine patch 2. Fall: Check CT head. Associated with rib fracture. 3. Pneumothorax: Seen on chest x-ray. Small. Patient on room air. In no respiratory distress. Surgery consulted from the ER. Plan for conservative treatment for now. Oxygen supplementation to maintain saturation at 100% for now. Repeat chest x-ray in a.m. for monitoring. Plan: Dementia: Continue home lamotrigine, memantine Regular diet CODE STATUS: Discussed in detail with daughter at bedside. DNR/DNI Heparin for DVT prophylaxis Famotidine for PUD prophylaxis PDMP PDMP Reviewed: Not Reviewed Attestations Medical Necessity Statement*: Admission for less than good 2 midnights for monitoring of pneumothorax post fall Diagnoses Right rib fracture S22.31XA Fall W19.XXXA Pneumothorax J93.9
--- NOTE | 2025-02-20 17:14 | CTR_ITS ---
PROCEDURE INFORMATION: Exam: CT Head Without Contrast Exam date and time: 02/20/2025 5:36 PM Age: 69 years old Clinical indication: Injury or trauma; Fall; Blunt trauma (contusions or hematomas); Without loss of consciousness; Altered mental status/memory loss; Confusion or disorientation; Additional info: Post fall TECHNIQUE: Imaging protocol: Computed tomography of the head without contrast. 283 image(s) are submitted. Radiation optimization: All CT scans at this facility use at least one of these dose optimization techniques: automated exposure control; mA and/or kV adjustment per patient size (includes targeted exams where dose is matched to clinical indication); or iterative reconstruction. COMPARISON: CT head wo con* [id number] 02/23/2024 11:02 AM RADIATION DOSE METRICS: Total DLP (mGy-cm): 968.48 FINDINGS: Brain: Normal. No hemorrhage. Unremarkable white matter. No mass effect. Cerebral ventricles: No ventriculomegaly. Paranasal sinuses: Visualized sinuses are unremarkable. No fluid levels. Mastoid air cells: Visualized mastoid air cells are well aerated. Bones: Unremarkable. No acute fracture. Soft tissues: Unremarkable. CT/CT head wo con* [id number] IMPRESSION: No acute intracranial abnormality.
[2025-02-20 17:18] LABS: INR 1.04 (0.8-1.2); Prothrombin Time 14.30 SECONDS (12.1-14.9)
[2025-02-20 17:28] LABS: Alanine Aminotransferase 40 U/L (0-33); Albumin Level 3.7 g/dL (3.5-5.2); Alkaline Phosphatase 162 U/L (35-105); Anion Gap 13.7 (5-19); Aspartate Amino Transferase 28 U/L (0-32); Blood Urea Nitrogen 23 mg/dL (8-23); Calcium 9.2 mg/dL (8.5-10.5); Carbon Dioxide 23 mmol/L (22-29); Chloride 110 mmol/L (98-107); Creatinine Clr Calc Pharmacy 71.9153; Globulin 2.8 g/dL (1.3-4.6); Glucose 101 mg/dL (65-115); Lactic Sepsis W/Reflex 1.2 mmol/L (0.5-2.2); Osmolality Calculated 300 mOsm/kg (285-295); Potassium 3.7 mmol/L (3.5-5.1); Sodium 143 mmol/L (136-145); Total Protein 6.5 g/dL (6.6-8.7)
[2025-02-20 17:32] LABS: Procalcitonin 0.11 ng/mL (0-0.5)
[2025-02-20 21:42] LABS: Estmated Average Glucose 94; Hemoglobin A1C 4.9 % (4.0-6.0)
[2025-02-20 22:17] LABS: Thyroid Stimulating Hormone 3.62 uIU/mL (0.27-4.20); Vitamin B12 766 pg/mL (232-1245)
[2025-02-21 04:00] VITALS: BP 151/76; PULSE 86; RESP 16; TEMP 36.5; O2SAT 98
[2025-02-21 04:08] LABS: Alanine Aminotransferase 40 U/L (0-33); Albumin Level 3.6 g/dL (3.5-5.2); Alkaline Phosphatase 167 U/L (35-105); Anion Gap 14.6 (5-19); Aspartate Amino Transferase 28 U/L (0-32); Blood Urea Nitrogen 16 mg/dL (8-23); Calcium 9.0 mg/dL (8.5-10.5); Carbon Dioxide 22 mmol/L (22-29); Chloride 108 mmol/L (98-107); Creatinine Clr Calc Pharmacy 75.1245; Globulin 3.0 g/dL (1.3-4.6); Glucose 85 mg/dL (65-115); Magnesium 1.8 mg/dL (1.7-2.3); Osmolality Calculated 292 mOsm/kg (285-295); Potassium 3.6 mmol/L (3.5-5.1); Sodium 141 mmol/L (136-145); Total Protein 6.6 g/dL (6.6-8.7)
[2025-02-21 04:09] LABS: Cholesterol 175 mg/dL (0-200); HDL Cholesterol 102 mg/dL (60-100); Hematocrit 41.4 % (36-47); Hemoglobin 13.90 g/dL (11.27-16.99); Mean Corpuscular HGB Conc 33.6 g/dL (30-55); Mean Corpuscular Hemoglobin 30.9 pg (27-33); Mean Corpuscular Volume 92.0 fl (85-98); Nucleated Red Blood Cells % 0 %; Platelet Count 122 10^3/cmm (157-399); Red Blood Count 4.50 10^6/uL (3.85-5.65); Triglycerides 43 mg/dL (0-150); White Blood Count 4.66 10^3/uL (3.29-11.43)
[2025-02-21 04:12] LABS: Procalcitonin 0.11 ng/mL (0-0.5)
--- NOTE | 2025-02-21 06:00 | XR_ITS ---
WS: [id number] Portable AP upright chest, 02/21/2025 Clinical Data: Pneumothorax Comparison: Chest with right rib detail, 02/20/2025 Findings: The small right apical pneumothorax remains the same. There is opacity at the right lung base which may represent atelectasis and effusion. There is a small left effusion with elevation of the left diaphragm.. No nodules or masses are seen. The heart is normal. The pulmonary vascularity is not increased. No pneumonia is seen. The aortic arch is minimally tortuous. XR/XR chest 1V portable [id number] Impression: 1. No change in right apical pneumothorax. 2. Opacity at right lung base which may represent atelectasis and or effusion. 3. Small left pleural effusion
[2025-02-21 07:57] VITALS: BP 127/73; PULSE 74; RESP 17; TEMP 36.5; O2SAT 96
--- NOTE | 2025-02-21 10:47 | P.PN_ITS ---
Subjective 2 Subjective: Patient not interactive not answering questions. Followed some commands She showed signs of being cold and would not allow me to examine her keeping herself covered. It became evident by the odor that the patient had been incontinent of urine and her gown was all wet. The nurse was assisting her Vitals/I&O/Wt Last Vital Signs Temp 97.7 F 02/21/25 07:57 Pulse 74 02/21/25 07:57 Resp 17 02/21/25 07:57 BP 127/73 02/21/25 07:57 Pulse Ox 96 02/21/25 07:57 O2 Del Method Room Air 02/21/25 07:57 O2 Flow Rate 15 02/20/25 19:16 02/20/25 02/21/25 02/21/25 22:59 06:59 14:59 Intake Total 0 / 0 100 / 100 Balance 0 / 0 100 / 100 Weight last 48 hrs Weight 89.414 kg Weight 89.414 kg Weight 81.647 kg Physical Exam 2 Narrative: Patient in mild distress due to having incontinence. She was pale in appearance awake did not answer questions but did sit up for me to auscultate her lungs Lungs were clear diminished on upper lobes of the right Other exam deferred due to incontinence Extremities did not appear to have edema Data 02/21/25 02:26 02/21/25 02:26 CXR: My impression: Pneumothorax identified in the right apical Increased markings in the right lower lung obscuring the right hemidiaphragm Radiologist's impression: XR/XR chest 1V portable [id number] Impression: 1. No change in right apical pneumothorax. 2. Opacity at right lung base which may represent atelectasis and or effusion. 3. Small left pleural effusion A&P Assessment and plan 1. Right rib fracture: Changed to oral pain medication Incentive spirometry. If needed can use lidocaine patch 2. Fall: CT head done due to fall. This was unremarkable 3. Pneumothorax: Seen on chest x-ray. Small. Patient on room air. In no respiratory distress. Surgery has been consulted Plan for conservative treatment for now. Oxygen supplementation to maintain saturation at 100% for now. Chest x-ray this morning is unchanged Plan: Dementia: Continue home lamotrigine, memantine Regular diet CODE STATUS: Discussed in detail with daughter at bedside. DNR/DNI Heparin for DVT prophylaxis Famotidine for PUD prophylaxis Plan for today. Would recommend continued observation of the pneumothorax. I would like to speak with daughter about ongoing plan and evaluation. Changed to oral pain medications Reevaluate mental status after cleaned up PDMP PDMP Reviewed: Not Reviewed Attestations 2 Medical Necessity Statement*: Anticipate greater than 2 midnight stay for the evaluation of pneumothorax. While she is not in respiratory distress and currently on room air concerns for worsening symptoms and patient could have an acute and marked change in condition. Coding Level of Care Code Acute Code for Chg Fwd Diagnoses Right rib fracture S22.31XA Fall W19.XXXA Pneumothorax J93.9
[2025-02-21 11:14] VITALS: BP 148/54; PULSE 76; RESP 17; TEMP 37; O2SAT 96
[2025-02-21 12:19] LABS: Glucose Urine UA Negative (Normal); Nitrate Urine Negative (Negative); Specific Gravity, Urine 1.013 (1.005-1.030)
[2025-02-21 12:24] LABS: Add Urine Microscopic? YES
[2025-02-21] MEDS: FUROsemide 10 mg/mL SDV 4mL 40 MG IVP (12:33)
[2025-02-21 12:45] LABS: UA Slide Review UA Slide Review Perf
[2025-02-21 12:47] LABS: Other Crystals Urine STARCH /hpf
--- NOTE | 2025-02-21 14:17 | P.DS_ITS ---
Discharge Providers Date of Admission: 02/20/25 16:25 Date of Discharge: February 21, 2025 Attending Provider at Admission: Puneet Oden MD Attending Provider at Discharge: Veto Atkins DO Primary Care Provider: Nicola Jordan DO Diagnoses at Discharge Discharge Diagnosis 1. Right rib fracture: 2. Fall: 3. Pneumothorax: Reason for Visit Reason for Visit: fall-right rib pain Brief History: Henrietta Ashley is a 69 year old female with past medical history of dementia presented to the ER after sustaining a [facility]. As per the reporting patient did not hit her head. Patient seems to be at her baseline AO x 1 currently. Complaining of mild rib pain. X-ray showed small pneumothorax hence medicine was consulted for admission and monitoring. Hospital Course Hospital Course Patient was admitted to the hospital for pain control and oxygen. However due to the patient's baseline dementia patient was unable to tolerate the oxygen. Patient did not receive any IV pain management. She received 2 doses of Tylenol. She does not appear to be in significant pain. She is not distress in an unknown environment. I spoke with patient's daughter who understands the difficulty in treating her mother with underlying dementia. She is in agreement with discharge back to facility. I did speak with her about this possibly being a sentinel event and complications arising from it. The concern would be for pneumonia. I also indicated that if complications were to occur given her dementia/mental status patient might have difficulty recovering leading to further morbidity or even mortality. Physical Exam Narrative: Patient in mild distress due to having incontinence. She was pale in appearance awake did not answer questions but did sit up for me to auscultate her lungs Lungs were clear diminished on upper lobes of the right Other exam deferred due to incontinence Extremities did not appear to have edema Urinary Catheter Management: Calderon: Cath Placed During This Visit: yes Urinary Catheter Date of Insertion: 02/21/25 Urinary Catheter Time of Insertion: 12:00 Discharge Data Studies Completed and Pending Completed Studies During Hospitalization Category Date Time Status CT head wo con* [id number] Stat Cat Scan 02/20/25 17:14 Completed XR chest 1V portable [id number] QAM Exams 02/21/25 06:00 Completed XR ribs RT mn 3V w CXR1V [id number] Stat Exams 02/20/25 15:35 Completed Pending at discharge Category Date Time Status Complete Blood Count w/Auto AM LABS Lab 02/22/25 04:00 Ordered Complete Blood Count w/Auto AM LABS Lab 02/23/25 04:00 Ordered Comprehensive Metabolic Panel AM LABS Lab 02/22/25 04:00 Ordered Comprehensive Metabolic Panel AM LABS Lab 02/23/25 04:00 Ordered Magnesium AM LABS Lab 02/22/25 04:00 Ordered Magnesium AM LABS Lab 02/23/25 04:00 Ordered Phosphorus AM LABS Lab 02/22/25 04:00 Ordered Phosphorus AM LABS Lab 02/23/25 04:00 Ordered Urine Culture Routine Lab 02/21/25 12:00 Received Radiology Impressions Ribs X-Ray 02/20/25 15:35 IMPRESSION: Pulmonary venous congestion bilaterally, progressed since prior study. Trace right-sided pleural effusion, new since prior study. Low bilateral lung volumes. Moderate size right apical pneumothorax measuring 2.3 cm in craniocaudal dimension. Subcutaneous emphysema along lateral chest wall, consistent with underlying rib injury and lung laceration. There is fracture of right-sided lateral 6 and possible 5th rib with less than 3 mm bony displacement at 6th rib level. COMMENT: THIS REPORT CONTAINS FINDINGS THAT MAY BE CRITICAL TO PATIENT CARE. The exam findings were verbally communicated by me to MIKE SANCHEZ via telephone conference at 5:04 PM CDT on 02/20/2025. The findings were acknowledged and understood. Head CT 02/20/25 17:14 IMPRESSION: No acute intracranial abnormality. Chest X-Ray 02/21/25 06:00 Impression: 1. No change in right apical pneumothorax. 2. Opacity at right lung base which may represent atelectasis and or effusion. 3. Small left pleural effusion Laboratory Results WBC 4.66 10^3/uL (3.29-11.43) 02/21/25 02:26 RBC 4.50 10^6/uL (3.85-5.65) 02/21/25 02:26 Hgb 13.90 g/dL (11.27-16.99) 02/21/25 02:26 Hct 41.4 % (36-47) 02/21/25 02:26 MCV 92.0 fl (85-98) 02/21/25 02:26 MCH 30.9 pg (27-33) 02/21/25 02:26 MCHC 33.6 g/dL (30-55) 02/21/25 02:26 RDW 16.1 % (12.1-15.1) H 02/21/25 02:26 Plt Count 122 10^3/cmm (157-399) L 02/21/25 02:26 MPV 12.6 fL (7.4-10.4) H 02/21/25 02:26 Neut % (Auto) 72.0 % 02/21/25 02:26 Lymph % (Auto) 10.9 % 02/21/25 02:26 [place] % (Auto) 13.7 % 02/21/25 02:26 Eos % (Auto) 2.6 % 02/21/25 02:26 Baso % (Auto) 0.4 % 02/21/25 02:26 Neut # (Auto) 3.35 10^3/uL (1.8-7.7) 02/21/25 02:26 Lymph # (Auto) 0.5 10^3/uL (0.8-4.8) L 02/21/25 02:26 [place] # (Auto) 0.6 10^3/uL (0.2-0.9) 02/21/25 02:26 Eos # (Auto) 0.1 10^3/uL (0.0-0.8) 02/21/25 02:26 Baso # (Auto) 0.0 10^3/uL (0.0-0.1) 02/21/25 02:26 Nucleated RBC % (auto) 0 % 02/21/25 02: Nucleated RBCs # 0.0 /100WBC 02/21/25 02: PT 14.30 SECONDS (12.1-14.9) 02/20/25 16:40 INR 1.04 (0.8-1.2) 02/20/25 16:40 Sodium 141 mmol/L (136-145) 02/21/25 02:26 Potassium 3.6 mmol/L (3.5-5.1) 02/21/25 02:26 Chloride 108 mmol/L (98-107) H 02/21/25 02:26 Carbon Dioxide 22 mmol/L (22-29) 02/21/25 02:26 Anion Gap 14.6 (5-19) 02/21/25 02:26 BUN 16 mg/dL (8-23) 02/21/25 02:26 Creatinine 0.5 mg/dL (0.5-0.9) 02/21/25 02:26 GFR Calculation 122.0 mL/min (90-130) 02/21/25 02:26 Glucose 85 mg/dL (65-115) 02/21/25 02:26 Estimat Average Glucose 94 02/20/25 16:40 Hemoglobin A1c 4.9 % (4.0-6.0) 02/20/25 16:40 Calculated Osmolality 292 mOsm/kg (285-295) 02/21/25 02:26 Lactic Acid 1.2 mmol/L (0.5-2.2) 02/20/25 16:40 Calcium 9.0 mg/dL (8.5-10.5) 02/21/25 02:26 Phosphorus 2.3 mg/dL (2.5-4.5) L 02/21/25 02:26 Magnesium 1.8 mg/dL (1.7-2.3) 02/21/25 02:26 Total Bilirubin 1.0 mg/dL (0.15-1.2) 02/21/25 02:26 AST 28 U/L (0-32) 02/21/25 02:26 ALT 40 U/L (0-33) H 02/21/25 02:26 Alkaline Phosphatase 167 U/L (35-105) H 02/21/25 02:26 Total Protein 6.6 g/dL (6.6-8.7) 02/21/25 02:26 Albumin 3.6 g/dL (3.5-5.2) 02/21/25 02:26 Globulin 3.0 g/dL (1.3-4.6) 02/21/25 02:26 Triglycerides 43 mg/dL (0-150) 02/21/25 02:26 Cholesterol 175 mg/dL (0-200) 02/21/25 02:26 LDL Cholesterol, Calc 64 mg/dL (50-129) 02/21/25 02:26 HDL Cholesterol 102 mg/dL (60-100) H 02/21/25 02:26 LDL/HDL Ratio 0.63 RATIO (0.00-3.22) 02/21/25 02:26 Cholesterol/HDL Ratio 1.72 mg/dL (0.0-4.40) 02/21/25 02:26 Vitamin B12 766 pg/mL (232-1245) 02/20/25 16:40 Folate 13.5 ng/mL (4.8-37.3) 02/21/25 02:26 Procalcitonin 0.11 ng/mL (0-0.5) 02/21/25 02:26 TSH 3.62 uIU/mL (0.27-4.20) 02/20/25 16:40 Urine Color Yellow (Yellow) 02/21/25 12:00 Urine Appearance Turbid (CLEAR) A 02/21/25 12:00 Urine pH 8.0 (5-7) A 02/21/25 12:00 Ur Specific [place] 1.013 (1.005-1.030) 02/21/25 12:00 Urine Protein Trace (Negative) A 02/21/25 12:00 Urine Glucose (UA) Negative (Normal) 02/21/25 12:00 Urine Ketones Negative (Negative) 02/21/25 12:00 Urine Blood 1+ (Negative) A 02/21/25 12:00 Urine Nitrate Negative (Negative) 02/21/25 12:00 Urine Bilirubin Negative (Negative) 02/21/25 12:00 Urine Urobilinogen 1.0 mg/dL (Negative) 02/21/25 12:00 Ur Leukocyte Esterase 3+ (Negative) A 02/21/25 12:00 Urine RBC 0-2 /hpf (0-2) 02/21/25 12:00 Urine WBC >100 /hpf (0-5) H 02/21/25 12:00 Ur Squamous Epith Cells 6-10 /hpf (0-5) 02/21/25 12:00 Other Crystals Starch /hpf 02/21/25 12:00 Amorphous Sediment Not Reportable 02/21/25 12:00 Urine Bacteria 4+ /hpf (NONE) H 02/21/25 12:00 Hyaline Casts 14.47 /lpf 02/21/25 12:00 Vitals Last Vital Signs Temp 98.6 F 02/21/25 11:14 Pulse 76 02/21/25 11:14 Resp 17 02/21/25 11:14 BP 148/54 02/21/25 11:14 Pulse Ox 96 02/21/25 11:14 O2 Del Method Room Air 02/21/25 11:14 O2 Flow Rate 15 02/20/25 19:16 Discharge Plan Discharge Patient Disposition: Home Condition: Stable Prescriptions: New docusate sodium 100 mg Capsule 100 mg PO BID Qty: 60 0RF hydrocodone-acetaminophen 5-325 mg tablet 1 tab PO Q6H PRN (Reason: pain) Qty: 30 0RF Continued acetaminophen 325 mg Tablet 650 mg PO Q4H PRN (Reason: pain or fever) magnesium hydroxide [Milk of Magnesia] 400 mg/5 mL Suspension 2,400 mg PO DAILY PRN (Reason: Constipation) bisacodyl [Dulcolax (bisacodyl)] 10 mg Suppository [address] DAILY PRN (Reason: Constipation) Fleet Enema 19-7 gram/118 mL Enema [address] DAILY PRN (Reason: Constipation) lamotrigine 100 mg tablet 50 mg PO TID melatonin 1 mg Tablet 1 mg PO BEDTIME memantine 5 mg tablet 5 mg PO BID eszopiclone 3 mg tablet 3 mg PO BEDTIME [place] Nasal 0.65 % Aerosol,[place] 1 spray INTRANASAL BID PRN (Reason: sinus dryness) Discharge Order = DC NOW: Discharge Order (Routine); Ordered 02/21/25 Ordered By: Veto Atkins Referrals: Nicola Jordan DO [Primary Care Provider, Internal Medicine] Discharge Diet: Usual diet Discharge Activity: Increase activity as tolerated Patient Instructions: Opioid Safety, Pain Management, Patient Portal & Kelly Instructions Plan of Treatment: Ideally, patient would benefit from oxygen 2 L. She would not keep it on in the hospital however, perhaps she will keep it on in a setting where she feels comfortable I attempted to write for Plush 5/325 but the site said it was denied. Perhaps the prison physician could write for said medication if patient is exhibiting signs of pain. Anticipate pain with the right rib fractures. Although it is ordered right now is Tylenol. Could add Motrin as needed Updated daughter that the pneumothorax is stable. Patient's not able to tolerate the usual treatment here at the hospital. Patient stable to return. Daughter is aware of high risk of pneumonia and the possibility of worsening pneumothorax. And this could be a sentinel event for which the patient if she has complications would result in further morbidity or mortality Discharge Attestations Time Spent in Discharge Care*: less than 30 min Quality Metrics Clinical Quality Measures [ No reported AMI, CVA or VTE this stay] Coding Level of Care Code Acute Code for Chg Fwd Diagnoses Right rib fracture S22.31XA Fall W19.XXXA Encounter type: initial encounter Pneumothorax S27.0XXA Encounter type: initial encounter Pneumothorax type: traumatic
[2025-02-21 15:53] VITALS: BP 148/55; PULSE 75; O2SAT 96
--- NOTE | 2025-02-21 16:20 | PC.NURSE ---
Report called to Anais at [facility]. UA results relayed as well as physician discharge note faxed. Denies questions or needs.
--- NOTE | 2025-02-22 17:50 | PM.MISC ---
Miscellaneous Note Purpose of Documentation: Responding to inbox message Note: Urine culture is growing gram-negative rods greater than 100,000. 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
== END 2025-02-21 15:35 | disposition skilled nursing facility (03) | DRG 200 ==
LOC: ER 16:29 → MEDSURG 17:36
PROVIDERS: Admitting Provider Student in an Organized Health Care Education/Training Program; Emergency Provider Emergency Medicine; PCP Internal Medicine; Visit Provider Internal Medicine
DX: S27.0XXA Traumatic pneumothorax, initial encounter (principal); S22.41XA Multiple fractures of ribs, right side, initial encounter for closed fracture; W01.0XXA Fall on same level from slipping, tripping and stumbling without subsequent striking against object, initial encounter; Y92.129 Unspecified place in nursing home as the place of occurrence of the external cause; F03.90 Unspecified dementia, unspecified severity, without behavioral disturbance, psychotic disturbance, mood disturbance, and anxiety; Z66 Do not resuscitate
CPT/HCPCS: 36415; 51702; 70450; 71045; 71101; 80053; 80061; 81001; 82607; 82746; 83036; 83605; 83735; 84100; 84145; 84443; 85025; 85610; 87086; 93005; 94664; 99285; J1644; J1938; J9999